=== PATIENT | female | born 1960 | race Caucasian/White ===

== ENCOUNTER 2022-02-25 09:15 | Emergency (ER) | payer BC ==
[2022-02-25 10:36] LABS: Absolute Lymphocytes (CBC) 1.4 K/uL (0.7-4.9); Hematocrit 40.4 % (36.0-45.0); MCV 85.1 fL (80-100); MPV 7.2 fL (7.6-11.3); RBC Red Blood Cell Count 4.75 M/uL (3.86-4.86)
[2022-02-25 10:37] LABS: Protime INR 1.05
[2022-02-25] MEDS ORDERED: NA CHLORIDE 0.9% 1,000 ML ONE (10:46)
[2022-02-25 10:52] LABS: Albumin 4.5 g/dL (3.4-5.0); Bilirubin Direct 0.2 mg/dL (0-0.2); Bilirubin Total 0.6 mg/dL (0.2-1.0); Potassium 3.7 mmol/L (3.5-5.1); Protein, Total 8.3 g/dL (6.4-8.2)
[2022-02-25] MEDS ORDERED: DICYCLOMINE HCL 20 MG/2 ML AMP IM ONE (11:03)
[2022-02-25] MEDS ORDERED: ONDANSETRON 4 MG/2 ML VIAL ONE (11:03)
--- NOTE | 2022-02-25 11:32 | RAD REPORT ---
EXAM DESCRIPTION: CT - Head Brain Wo Cont - 02/25/2022 11:12 am CLINICAL HISTORY: Syncope COMPARISON: 2014 TECHNIQUE: Computed axial tomography of the head was obtained. IV contrast was not requested. All CT scans are performed using dose optimization technique as appropriate and may include automated exposure control or mA/KV adjustment according to patient size. FINDINGS: An intracranial bleed is not seen . The ventricles are normal in caliber. No extra-axial fluid collection is noted. Mild low-density areas within white matter left frontal lobe unchanged. Sub centimeter sub centimeter low-density area right cerebellum without significant change presumably neural epithelial cyst Fluid within the sinuses/ mastoids is not seen. IMPRESSION: No acute intracranial abnormality is seen. If patient's symptoms persist MRI of the bra in would be recommended.
--- NOTE | 2022-02-25 11:32 | RAD REPORT ---
EXAM DESCRIPTION: Jesus Single View02/25/2022 10:47 am CLINICAL HISTORY: Shortness of breath COMPARISON: none FINDINGS: The lungs appear clear of acute infiltrate. The heart is normal size IMPRESSION: No acute abnormalities displayed
--- NOTE | 2022-02-25 11:37 | RAD REPORT ---
EXAM DESCRIPTION: CT - Abdomen Pelvis Wo Contrast - 02/25/2022 11:12 am CLINICAL HISTORY: Abdominal pain blood in stool COMPARISON: None TECHNIQUE: Computed axial tomography of the abdomen and pelvis was obtained. IV and oral contrast we re not requested. All CT scans are performed using dose optimization technique as appropriate and may include automated exposure control or mA/KV adjustment according to patient size. FINDINGS: The evaluation of solid organs, vessels and bowel is limited secondary to the lack of con trast administration. The liver, spleen, pancreas, adrenals and kidneys appear grossly normal. 13 millimeter peripherally calcified gallstone. Small umbilical hernia Mild to mild thickening of the wall of the left colon. No evidence of diverticulitis. Atherosclerotic disease Hysterectomy. No adnexal mass. Small hiatal hernia IMPRESSION: Cholelithiasis Mild to mild thickening of the wall of the left colon probably indicating a colitis
[2022-02-25 11:42] LABS: Magnesium 2.2 mg/dL (1.8-2.4); Troponin High Sensitivity 7.5 pg/mL (<58.9)
[2022-02-25] MEDS ORDERED: FAMOTIDINE 20 MG/2 ML VIAL IV ONE (11:54)
--- NOTE | 2022-02-25 12:10 | ER ---
Nurse's Notes [facility] Name: Patt Velásquez Age: 61 yrs Sex: Female : 1960 Arrival Date: 02/25/2022 Time: 09:16 Bed 9 Private MD: SUZANNE RICARDO Diagnosis: Syncope;GI Bleed/ Gastrointestinal hemorrhage, unspecified;Left sided colitis Presentation: 02/25 10:05 Chief complaint: Patient states: abdominal pain, N/V/D since yesterday, with bloody jl7 stool; pain has resolved. Coronavirus screen: Vaccine status: Patient reports receiving the 2nd dose of the covid vaccine. At this time, the client does not indicate any symptoms associated with coronavirus-19. Ebola Screen: No symptoms or risks identified at this time. Initial Sepsis Screen: Does the patient meet any 2 criteria? No. Patient's initial sepsis screen is negative. Does the patient have a suspected source of infection? No. Patient's initial sepsis screen is negative. Risk Assessment: Do you want to hurt yourself or someone else? Patient reports no desire to harm self or others. Onset of symptoms was February 25, 2022. 10:05 Method Of Arrival: Wheelchair jl7 10:05 Acuity: NIDIA 3 jl7 Triage Assessment: 10:08 General: Appears in no apparent distress. uncomfortable, Behavior is calm, cooperative, jl7 appropriate for age. Pain: Denies pain. GI: Reports diarrhea, nausea, vomiting. Historical: - Allergies: 10:08 No Known Allergies; jl7 - Home Meds: 10:08 Lisinopril Oral [Active]; jl7 - PMHx: 10:08 Hypertensive disorder; Hypercholesterolemia; jl7 - PSHx: 10:08 section; Total abdominal hysterectomy; knee; jl7 - Immunization history:: Client reports receiving the 2nd dose of the Covid vaccine. - Social history:: Smoking status: Patient denies any tobacco usage or history of. Screenin:00 Abuse screen: Denies threats or abuse. Denies injuries from another. Nutritional eh3 screening: No deficits noted. Tuberculosis screening: No symptoms or risk factors identified. Fall Risk None identified. Assessment: 11:00 General: Appears in no apparent distress. uncomfortable, Behavior is cooperative, eh3 appropriate for age, anxious. Pain: Denies pain. Neuro: Level of Consciousness is awake, alert, obeys commands, Oriented to person, place, time, situation. Cardiovascular: Capillary refill < 3 seconds Patient's skin is warm and dry. Respiratory: Airway is patent Respiratory effort is even, unlabored, Respiratory pattern is regular, symmetrical. GI: Abdomen is round non-distended, Bowel sounds present X 4 quads. Abdomen is tender to palpation X 4 quads. Reports diarrhea, bloody stool, nausea. : No signs and/or symptoms were reported regarding the genitourinary system. EENT: Derm: No signs and/or symptoms reported regarding the dermatologic system. Musculoskeletal: No signs and/or symptoms reported regarding the musculoskeletal system. Range of motion: intact in all extremities. 12:00 Reassessment: Patient and/or family updated on plan of care and expected duration. Pain eh3 level reassessed. Patient is alert, oriented x 3, equal unlabored respirations, skin warm/dry/pink. 13:00 Reassessment: Patient and/or family updated on plan of care and expected duration. Pain eh3 level reassessed. Patient is alert, oriented x 3, equal unlabored respirations, skin warm/dry/pink. 13:29 Reassessment: Patient and/or family updated on plan of care and expected duration. Pain eh3 level reassessed. Patient is alert, oriented x 3, equal unlabored respirations, skin warm/dry/pink. Pt states she would like to leave and go home to call Dr. Levy. ERCP notified. Vital Signs: 10:05 BP 105 / 61; Pulse 108; Resp 17; Temp 98; Pulse Ox 100% ; Weight 76.2 kg (R); Height 5 7 ft. 7 in. (170.18 cm); Pain 0/10; 11:00 BP 125 / 59; Pulse 100; Resp 18; Temp 98.2(O); Pulse Ox 100% on R/A; eh3 12:00 BP 156 / 76; Pulse 104; Resp 16; Temp 98.6(O); Pulse Ox 100% ; eh3 13:00 BP 131 / 68; Pulse 101; Resp 18; Pulse Ox 100% on R/A; eh3 10:05 Body Mass Index 26.31 (76.20 kg, 170.18 cm) 7 ED Course: 09:16 Patient arrived in ED. am2 09:16 SUZANNE RICARDO is Private Physician. am2 09:17 Levy Sierra PA is PHCP. cp 09:17 Levy Lentz MD is Attending Physician. cp 10:07 Triage completed. jl7 10:08 Arm band placed on right wrist. jl7 10:22 Atiya Davis, RN is Primary Nurse. eh3 10:23 Initial lab(s) drawn, by wa, sent to lab. Inserted saline lock: 20 gauge in right jw7 antecubital area, using aseptic technique. Blood collected. 10:43 EKG done, by ED staff, reviewed by Levy PAZ. em1 10:49 XRAY Chest (1 view) In Process Unspecified. EDMS 11:00 Patient has correct armband on for positive identification. Bed in low position. Call eh3 light in reach. Side rails up X2. Adult w/ patient. Pulse ox on. NIBP on. Door closed. Noise minimized. Lights dimmed. Warm blanket given. 11:14 CT Head Brain wo Cont In Process Unspecified. EDMS 11:14 Abdomen In Process Unspecified. EDMS 12:00 Procalcitonin Sent. jw7 12:00 Lactate w/ 2H reflex if indic. Sent. jw7 12:[address] [facility]. bd 13:34 Finesse Levy MD is Referral Physician. cp 13:40 No provider procedures requiring assistance completed. IV discontinued, intact, eh3 bleeding controlled, No redness/swelling at site. Pressure dressing applied. Administered Medications: 11:15 Drug: NS 0.9% 1000 ml Route: IV; Rate: 1 bolus; Site: right antecubital; eh3 12:30 Follow up: IV Status: Completed infusion; IV Intake: 1000ml eh3 11:15 Drug: Zofran (Ondansetron) 4 mg Route: IVP; Site: right antecubital; eh3 12:07 Follow up: Response: Nausea is decreased eh3 11:20 Drug: Dicyclomine 20 mg Route: IM; Site: right ventrogluteal; eh3 12:08 Follow up: Response: No adverse reaction eh3 11:48 Drug: Pepcid (famotidine) 20 mg Route: IVP; Site: right antecubital; eh3 12:08 Follow up: Response: No adverse reaction eh3 13:40 Not Given (Patient Refused): Cipro (ciprofloxacin) 400 mg 200 ml IVPB once over 60 mins eh3 13:40 Not Given (Patient Refused): metroNIDAZOLE 500 mg 100 ml IVPB once over 30 mins eh3 Medication: 13:40 VIS not applicable for this client. eh3 Intake: 12:30 IV: 1000ml; Total: 1000ml. eh3 Outcome: 12:10 ER care complete, transfer ordered by MD. cp 13:35 Discharge ordered by MD. cp 13:50 Discharged to home ambulatory, with family. eh3 13:50 Condition: stable 13:50 Discharge instructions given to patient, family, Instructed on discharge instructions, follow up and referral plans. medication usage, Demonstrated understanding of instructions, follow-up care, medications, Prescriptions given X 3. 13:52 Patient left the ED. eh3 Signatures: Dispatcher [employer] EDMS Renay Guy Eric em1 Levy Sierra PA PA cp Leal, Jahala RN RN jl7 Gypsy Chen am2 Diandra Metz7 Atiya Davis, AZALIA RN eh3 Corrections: (The following items were deleted from the chart) 10:09 10:08 PMHx: Hypertensive disorder; selma jl7 13:28 11:00 BP 127 / 59; Pulse 100bpm; Resp 18bpm; Pulse Ox 100% RA; Temp 98.2F Oral; eh3 eh3 13:40 13:29 Reassessment: Patient and/or family updated on plan of care and expected eh3 duration. Pain level reassessed. Patient is alert, oriented x 3, equal unlabored respirations, skin warm/dry/pink. Pt states she would like to leave AMA and go home to call Dr. Parry. ERCP notified eh3 14:24 12:25 BP 127 / 59; Pulse 100bpm; Resp 18bpm; Pulse Ox 100% RA; Temp 98.2F Oral; eh3 eh3 14:24 13:27 BP 156 / 76; Pulse 104bpm; Resp 16bpm; Pulse Ox 100%; Temp 98.6F Oral; eh3 eh3
--- NOTE | 2022-02-25 12:10 | EDPHYS ---
Physician Documentation [facility] Name: Patt Velásquez Age: 61 yrs Sex: Female : 1960 Arrival Date: 02/25/2022 Time: 09:16 Bed 9 Private MD: SUZANNE RICARDO ED Physician Levy Lentz HPI: 02/25 10:15 This 61 yrs old Female presents to ER via Wheelchair with complaints of Abdominal Pain, cp Diarrhea, Bloody Stools. 10:15 The patient presents with abdominal pain. cp 10:15 Onset: The symptoms/episode began/occurred yesterday. The symptoms do not radiate. cp Associated signs and symptoms: Pertinent positives: blood in stools, diarrhea, Pertinent negatives: chest pain, constipation, fever, hematuria, vomiting. The symptoms are described as waxing/waning. Severity of pain: in the emergency department the pain has improved. 10:15 Patient reports becoming weak and passing out briefly. cp Historical: - Allergies: 10:08 No Known Allergies; jl7 - Home Meds: 10:08 Lisinopril Oral [Active]; jl7 - PMHx: 10:08 Hypertensive disorder; Hypercholesterolemia; jl7 - PSHx: 10:08 section; Total abdominal hysterectomy; knee; jl7 - Immunization history:: Client reports receiving the 2nd dose of the Covid vaccine. - Social history:: Smoking status: Patient denies any tobacco usage or history of. ROS: 10:20 Constitutional: Negative for body aches, chills, fever, poor PO intake. cp 10:20 Eyes: Negative for injury, pain, redness, and discharge. cp 10:20 ENT: Negative for drainage from ear(s), ear pain, sore throat, difficulty swallowing, difficulty handling secretions. 10:20 Cardiovascular: Negative for chest pain, edema, palpitations. 10:20 Respiratory: Negative for cough, shortness of breath, wheezing. 10:20 Abdomen/GI: Positive for abdominal pain, nausea, diarrhea, anorexia, rectal bleeding, Negative for vomiting, constipation, black/tarry stool. 10:20 : Negative for urinary symptoms. 10:20 Neuro: Positive for dizziness, syncope, weakness, Negative for headache. 10:20 All other systems are negative. Exam: 10:25 Constitutional: The patient appears in no acute distress, alert, awake, cp non-diaphoretic, non-toxic, well developed, well nourished. 10:25 Head/Face: Normocephalic, atraumatic. cp 10:25 Eyes: Periorbital structures: appear normal, Conjunctiva: normal, no exudate, no injection, Sclera: no appreciated abnormality, Lids and lashes: appear normal, bilaterally. 10:25 ENT: External ear(s): are unremarkable, Nose: is normal, Mouth: Lips: moist, Oral mucosa: pink and intact, moist, Posterior pharynx: Airway: no evidence of obstruction, patent. 10:25 Neck: ROM/movement: is normal, is supple, without pain, no range of motions limitations. 10:25 Chest/axilla: Inspection: normal. 10:25 Cardiovascular: Rate: tachycardic, Rhythm: regular, Edema: is not appreciated, JVD: is not appreciated. 10:25 Respiratory: the patient does not display signs of respiratory distress, Respirations: normal, no use of accessory muscles, no retractions, labored breathing, is not present, Breath sounds: are clear throughout, no decreased breath sounds, no stridor, no wheezing. 10:25 Abdomen/GI: Inspection: abdomen appears normal, Bowel sounds: active, all quadrants, Palpation: soft, in all quadrants, mild abdominal tenderness, in the abdomen diffusely, rebound tenderness, is not appreciated, involuntary guarding, is not appreciated, Rectal exam: Stool: guaiac positive, maroon. 10:25 Back: CVA tenderness, is absent. 10:25 Neuro: Orientation: to person, place \T\ time. Mentation: is normal, Motor: moves all fours, strength is normal, Sensation: is normal. 10:45 ECG was reviewed by the Attending Physician. cp Vital Signs: 10:05 BP 105 / 61; Pulse 108; Resp 17; Temp 98; Pulse Ox 100% ; Weight 76.2 kg (R); Height 5 jl7 ft. 7 in. (170.18 cm); Pain 0/10; 11:00 BP 125 / 59; Pulse 100; Resp 18; Temp 98.2(O); Pulse Ox 100% on R/A; eh3 12:00 BP 156 / 76; Pulse 104; Resp 16; Temp 98.6(O); Pulse Ox 100% ; eh3 13:00 BP 131 / 68; Pulse 101; Resp 18; Pulse Ox 100% on R/A; eh3 10:05 Body Mass Index 26.31 (76.20 kg, 170.18 cm) jl7 MDM: 10:10 Patient medically screened. ovi 13:30 Data reviewed: vital signs, nurses notes, lab test result(s), EKG, radiologic studies, cp CT scan. ED course: VSS. Labs, EKG, radiology results reviewed and discussed with patient. Transfer recommended for admission and GI consult. Patient refuses transfer at this time and requests treatment with oral antibiotics. 02/25 10:00 Order name: Basic Metabolic Panel; Complete Time: 11:56 02/25 11:56 Interpretation: Normal except: GLUC 142; BUN 35; CRE 1.57; GFR 37; CA 12.0. 02/25 10:00 Order name: CBC with Diff; Complete Time: 10:48 02/25 11:57 Interpretation: Normal except: WBC 18.10; MPV 7.2; SILVIA% 84.3; LYM% 8.0; NEUT A 15.3. 02/25 10:00 Order name: LFT's; Complete Time: 11:56 02/25 10:00 Order name: Magnesium; Complete Time: 11:56 02/25 10:00 Order name: NT PRO-BNP; Complete Time: 11:56 02/25 11:56 Interpretation: Abnormal: NT PRO-BNP 202. 02/25 10:00 Order name: PT-INR; Complete Time: 10:48 02/25 10:00 Order name: Troponin HS; Complete Time: 11:56 02/25 10:00 Order name: XRAY Chest (1 view); Complete Time: 11:56 02/25 10:00 Order name: Lipase; Complete Time: 11:56 02/25 10:49 Order name: CT Head Brain wo Cont; Complete Time: 11:56 02/25 10:00 Order name: EKG; Complete Time: 10:01 02/25 10:00 Order name: Cardiac monitoring; Complete Time: 11:00 02/25 10:00 Order name: EKG - Nurse/Tech; Complete Time: 10:43 02/25 10:00 Order name: IV Saline Lock; Complete Time: 10:24 02/25 10:00 Order name: Labs collected and sent; Complete Time: 10:24 cp 02/25 10:00 Order name: O2 Per Protocol; Complete Time: 11:00 cp 02/25 10:00 Order name: O2 Sat Monitoring; Complete Time: 11:00 cp 02/25 11:11 Order name: Abdomen ; Complete Time: 11:56 EDMS 02/25 13:24 Order name: Vital Signs; Complete Time: 13:29 cp EC:45 Rate is 101 beats/min. Rhythm is regular. [place] interval is normal. QRS interval is cp normal. QT interval is normal. T waves are Inverted in lead aVR. Interpreted by me. Reviewed by me. Administered Medications: 11:15 Drug: NS 0.9% 1000 ml Route: IV; Rate: 1 bolus; Site: right antecubital; eh3 12:30 Follow up: IV Status: Completed infusion; IV Intake: 1000ml eh3 11:15 Drug: Zofran (Ondansetron) 4 mg Route: IVP; Site: right antecubital; eh3 12:07 Follow up: Response: Nausea is decreased eh3 11:20 Drug: Dicyclomine 20 mg Route: IM; Site: right ventrogluteal; eh3 12:08 Follow up: Response: No adverse reaction eh3 11:48 Drug: Pepcid (famotidine) 20 mg Route: IVP; Site: right antecubital; eh3 12:08 Follow up: Response: No adverse reaction eh3 13:40 Not Given (Patient Refused): Cipro (ciprofloxacin) 400 mg 200 ml IVPB once over 60 mins eh3 13:40 Not Given (Patient Refused): metroNIDAZOLE 500 mg 100 ml IVPB once over 30 mins eh3 Disposition: 02/26 09:32 Co-signature as Attending Physician, Levy Lentz MD I agree with the assessment and ovi plan of care. Disposition Summary: 02/25/22 13:35 Discharge Ordered Location: Home cp Problem: new(02/25/22 13:35) cp Symptoms: have improved(02/25/22 13:35) cp Condition: Stable(02/25/22 13:35) cp Diagnosis - Syncope cp - GI Bleed/ Gastrointestinal hemorrhage, unspecified(02/25/22 13:35) cp - Left sided colitis(02/25/22 13:35) cp Followup: cp - With: Finesse Levy MD - When: 2 - 3 days - Reason: Recheck today's complaints Discharge Instructions: - Discharge Summary Sheet cp - Gastrointestinal Bleeding cp - Colitis cp Forms: - Medication Reconciliation Form cp - Thank You Letter cp - Antibiotic Education cp - Prescription Opioid Use cp Prescriptions: - Zofran 4 mg Oral Tablet - take 1 tablet by ORAL route every 12 hours As needed; 20 tablet; Refills: 0, cp Product Selection Permitted - Augmentin 875-125 mg Oral Tablet - take 1 tablet by ORAL route every 12 hours for 10 days; 20 tablet; Refills: 0, cp Product Selection Permitted - dicyclomine 20 mg Oral Tablet - take 1 tablet by ORAL route 4 times per day; 20 tablet; Refills: 0, Product cp Selection Permitted Signatures: Dispatcher [employer] EDMS Levy Lentz MD MD cha Page, Corey, JACKSON PA Pawan Ray, RN RN jl7 Atiya Davis RN RN eh3 Corrections: (The following items were deleted from the chart) 02/25 10:09 10:08 PMHx: Hypertensive disorder; jl7 jl7 11:11 10:51 Abdomen Pelvis W Con+CT.RAD.BRZ ordered. EDMS EDMS 11:56 11:56 Normal except: GLUC 142; BUN 35; CRE 1.57; GFR 37. cp cp 12:11 12:10 Doctor cp cp 13:34 12:10 [facility] cp cp 13:34 12:10 Higher level of care cp cp 13:34 12:10 Stable cp cp 13:34 12:10 new cp cp 13:34 12:10 have improved cp cp 13:34 12:10 GI Bleed/ Gastrointestinal hemorrhage, unspecified cp cp 13:34 12:11 Doctor cp cp 13:34 12:11 Left sided colitis cp cp 13:34 12:11 Syncope cp cp
[2022-02-25 14:15] VITALS: O2SAT 100
[2022-02-25 14:17] VITALS: BP 156/76; TEMP 98.6
--- NOTE | 2022-02-28 19:22 | EKG ---
Test Date: 2022-02-25 Test Time: 10:39:29 Hand Dry Cleaner: ARJUN MEASUREMENT RESULTS: Intervals: Rate: 101 OK: 154 QRSD: 82 QT: 340 QTc: 440 [place]: P: 78 OK: 154 QRS: 51 T: 75 INTERPRETIVE STATEMENTS: Sinus tachycardia Otherwise normal ECG Compared to ECG 03/09/2000 14:36:00 Sinus rhythm no longer present Electronically Signed On 02-28-22 19:11:28 [employer] by Edgardo Caceres
== END 2022-02-25 13:52 | disposition home or self-care (01) ==
LOC: ER 09:15
DX: K92.2 Gastrointestinal hemorrhage, unspecified (principal); K51.50 Left sided colitis without complications; I10 Essential (primary) hypertension
CPT/HCPCS: 96361; 93005; 85025; 80048; 36415; 83735; 85610; 80076; 84484; 83690; 83880; 70450; 74176; 71045; 96375; 96372; 96374; 99284; J0500; J7030; J2405

== ENCOUNTER 2023-11-17 12:36 | Inpatient (IN) | payer BC ==
[2023-11-17] MEDS ORDERED: NA CHLORIDE 0.9% 1,000 ML ONE ×2 (13:06→15:40)
[2023-11-17] MEDS ORDERED: ONDANSETRON 4 MG/2 ML VIAL ONE ×2 (13:06→14:51)
[2023-11-17] MEDS ORDERED: FAMOTIDINE 20 MG/2 ML VIAL IV ONE (13:06)
[2023-11-17 13:34] LABS: Absolute Monocytes 0.9 K/uL (0.1-1.3); Absolute Neutrophil 6.9 K/uL (1.8-8.0); Basophils % 0.5 % (0-1.3); Eosinophils % 0.1 % (0-4.4); Hematocrit 35.6 % (36.0-45.0); Hemoglobin 11.7 g/dL (12.0-15.0); Lymphocytes % 19.8 % (15.3-44.8); MCH 28.7 pg (27.0-35.0); MCHC 32.9 g/dL (32.0-36.0); MCV 87.2 fL (80-100); Monocytes % 9.3 % (3.3-12.3); Neutrophils % 70.3 % (41.7-73.7); Platelets 366 thou/uL (152-406); RBC Red Blood Cell Count 4.09 M/uL (3.86-4.86); Red Cell Distribution Width 15.3 % (12.1-15.2)
[2023-11-17 13:51] LABS: PT Prothrombin Time 12.2 SECONDS (9.4-12.5); Protime INR 1.09
[2023-11-17 13:56] LABS: Albumin 4.5 g/dL (3.4-5.0); Albumin/Globulin Ratio 1.1 (1.1-1.8); Anion Gap 13.7 mEq/L (5.0-15.0); Bilirubin Direct 0.2 mg/dL (0-0.2); Bilirubin Indirect, Calculated 0.3 mg/dL (0.2-0.8); Bilirubin Total 0.5 mg/dL (0.2-1.0); Globulin 4.2 g/dL (2.3-3.5); Magnesium 1.8 mg/dL (1.6-2.4); Potassium 3.7 mEq/L (3.5-5.1); Protein, Total 8.7 g/dL (6.4-8.2); Troponin High Sensitivity 9.6 pg/mL (<58.9)
--- NOTE | 2023-11-17 14:08 | RAD REPORT ---
EXAM DESCRIPTION: RAD - Chest Single View - 11/17/2023 1:38 pm CLINICAL HISTORY: COUGH COMPARISON: Chest Single View dated 02/25/2022 FINDINGS: Lines: None. Lungs: No evidence of edema or pneumonia. Pleural: No significant pleural effusions or pneumothorax. Cardiac: The heart size is within normal limits. Mediastinum: Within normal limits. Bones: No acute fractures. Other: None IMPRESSION: No acute cardiopulmonary disease.
--- NOTE | 2023-11-17 15:10 | ER ---
Nurse's Notes [facility] Name: Patt Velásquez Age: 63 yrs Sex: Female : 1960 Arrival Date: 11/17/2023 Time: 12:36 Bed 20 Private MD: Diagnosis: Weakness;Dehydration;Acute kidney failure, unspecified;Vomiting;Nausea with vomiting, unspecified Presentation: 11/16 13:29 Chief complaint: Patient states: nausea, vomiting. Coronavirus screen: At this time, kj2 the client does not indicate any symptoms associated with coronavirus-19. Ebola Screen: No symptoms or risks identified at this time. Initial Sepsis Screen: Does the patient meet any 2 criteria? No. Patient's initial sepsis screen is negative. Does the patient have a suspected source of infection? No. Patient's initial sepsis screen is negative. Risk Assessment: Do you want to hurt yourself or someone else? Patient reports no desire to harm self or others. Onset of symptoms was November 16, 2023 at 15:00. 13:29 Method Of Arrival: Ambulatory kj2 13:29 Acuity: NIDIA 3 kj2 Triage Assessment: 13:55 General: Appears uncomfortable, Behavior is fussy. GI: Reports nausea, vomiting, since kj2 yesterday at 1500. Historical: - Home Meds: 13:32 lisinopril Oral [Active]; kj2 - PMHx: 13:32 Hypercholesterolemia; Hypertensive disorder; kj2 - PSHx: 13:32 section; knee; Total abdominal hysterectomy; kj2 - Immunization history:: Adult Immunizations up to date. - Infectious Disease History:: Denies. - Family history:: not pertinent. - Social history:: Smoking status: Patient/guardian denies using tobacco products. Screenin:52 [facility] ED Fall Risk Assessment (Adult) History of falling in the last 3 months, kj2 including since admission No falls in past 3 months (0 pts) Confusion or Disorientation No (0 pts) Intoxicated or Sedated No (0 pts) Impaired Gait No (0 pts) Mobility Assist Device Used No (0 pt) Altered Elimination No (0 pt) Score/Fall Risk Level 0 - 2 = Low Risk Maintained a safe environment, Educated pt \\T\\ family on fall prevention, incl call for assistance when getting out of bed, Hourly rounding (assess needs \\T\\ fall precautionary measures) done. Abuse screen: Denies threats or abuse. Denies injuries from another. Nutritional screening: No deficits noted. Tuberculosis screening: No symptoms or risk factors identified. Assessment: 13:31 General: see triage assessment. Pain: Denies pain. GI: Abdomen is Reports nausea, kj2 vomiting. 14:25 Reassessment: No changes from previously documented assessment. Patient and/or family kj2 updated on plan of care and expected duration. Pain level reassessed. Patient is alert, oriented x 3, equal unlabored respirations, skin warm/dry/pink. 14:57 Reassessment: Patient and/or family updated on plan of care and expected duration. Pain kj2 level reassessed. Patient is alert, oriented x 3, equal unlabored respirations, skin warm/dry/pink. RN gave zofran via IV for complains of nausea. 16:32 Reassessment: Patient and/or family updated on plan of care and expected duration. Pain kj2 level reassessed. Patient is alert, oriented x 3, equal unlabored respirations, skin warm/dry/pink. Patient states feeling better. Patient states symptoms have improved. 17:30 Reassessment: No changes from previously documented assessment. kj2 Vital Signs: 13:29 BP 135 / 72; Pulse 110; Resp 20; Temp 99; Pulse Ox 98% on R/A; kj2 13:30 BP 135 / 72; Pulse 110; Resp 20; Temp 99; Pulse Ox 98% on R/A; kj2 14:23 BP 141 / 74; Pulse 107; Resp 18; Pulse Ox 98% on R/A; kj2 14:57 BP 132 / 67; Pulse 106; Resp 20; Pulse Ox 98% on R/A; kj2 16:30 BP 155 / 83; Pulse 103; Resp 18; Pulse Ox 99% on R/A; kj2 17:30 BP 128 / 72; Pulse 110; Resp 18; Pulse Ox 97% on R/A; kj2 ED Course: 12:39 Patient arrived in ED. mg5 12:45 Levy Lentz MD is Attending Physician. ovi 13:03 Maida Dallas, AZALIA is Primary Nurse. kj2 13:30 Triage completed. kj2 13:31 No provider procedures requiring assistance completed. Inserted saline lock: 20 gauge kj2 in right antecubital area, using aseptic technique. Blood collected. Flushed with 10 mL NS. 13:40 XRAY Chest (1 view) In Process Unspecified. EDMS 13:54 Patient has correct armband on for positive identification. Bed in low position. Call kj2 light in reach. Provided Education on: call light, fall precautions. 14:03 EKG done, by ED staff, reviewed by Levy Lentz MD. 6 15:08 Nikita Magdaleno is Hospitalizing Provider. [facility] 15:16 CT Chest Abdomen Pelvis W/O Contrast In Process Unspecified. EDMS 16:07 Labs ordered per protocol. Drawn by ED staff. blood cultures drawn at 1540 and 1550, kj2 lactate drawn at 1550. 16:11 Lactate w/ 2H reflex if indic. Sent. kj2 18:00 Patient admitted, IV remains in place. kj2 Administered Medications: 13:30 Drug: Famotidine IVP 20 mg IVP once; dilute with 10 mL 0.9% NaCl; give over 2 minutes kj2 Route: IVP; Site: right antecubital; 13:56 Follow up: Response: No adverse reaction kj2 13:33 Drug: Ondansetron IVP 4 mg IVP once; over 2 minutes Route: IVP; Site: right antecubital;kj2 13:56 Follow up: Response: No adverse reaction kj2 13:34 Drug: NS 0.9% IV 1000 ml IV at 1 bolus Per protocol; 1000 mL bolus Route: IV; Rate: 1 kj2 bolus; Site: right antecubital; 15:00 Follow up: Response: No adverse reaction; IV Status: Completed infusion; IV Intake: kj2 1000ml 14:56 Drug: Ondansetron IVP 4 mg IVP once; over 2 minutes Route: IVP; Site: right antecubital;kj2 16:34 Follow up: Response: No adverse reaction kj2 16:10 Drug: Rocephin IV 1 grams IV at per protocol once; Given slow IV push per pharmacy kj2 instructions Route: IV; Rate: per protocol; Site: right antecubital; 16:33 Follow up: Response: No adverse reaction kj2 16:11 Drug: NS 0.9% IV 1000 ml IV at 1 bolus Per protocol; 1000 mL bolus Route: IV; Rate: 1 kj2 bolus; Site: right antecubital; 17:30 Follow up: Response: No adverse reaction; IV Status: Completed infusion; IV Intake: kj2 1000ml 16:11 Drug: Promethazine IVP 25 mg IVP once; add to 2 nd liter bolus Route: IVP; Site: right kj2 antecubital; 16:33 Follow up: Response: No adverse reaction; Nausea is decreased kj2 Medication: 13:53 VIS not applicable for this client. kj2 Intake: 15:00 IV: 1000ml; Total: 1000ml. kj2 17:30 IV: 1000ml; Total: 2000ml. kj2 Outcome: 15:09 Decision to Hospitalize by Provider. ovi 17:56 Patient left the ED. kj2 17:58 Admitted to Tele accompanied by tech, via wheelchair, room 405, Report called to [facility] [place] ticket faxed to 2nd floor as instructed by Dawn when called 4th floor to find out if fax working, stated "out of toner, fax to second floor". 17:58 Condition: stable 17:58 Instructed on the need for admit, Signatures: Dispatcher [employer] Levy Connor MD MD cha [place], Breana 6 Racquel Zhang mg5 Maida Dallas, RN RN kj2
--- NOTE | 2023-11-17 15:10 | EDPHYS ---
Physician Documentation [facility] Name: Patt Velásquez Age: 63 yrs Sex: Female : 1960 Arrival Date: 11/17/2023 Time: 12:36 Bed 20 Private MD: JUAN MANUEL Physician Levy Lentz HPI: 11/16 15:04 This 63 yrs old Female presents to ER via Ambulatory with complaints of ovi Nausea/Vomiting. 15:04 The patient presents to the emergency department with nausea, vomiting, that is ovi continuous. Onset: The symptoms/episode began/occurred 1 day(s) ago. Possible causes: unknown. The symptoms are aggravated by nothing. The symptoms are alleviated by nothing. Associated signs and symptoms: The patient has no apparent associated signs or symptoms. Severity of symptoms: At their worst the symptoms were moderate in the emergency department the symptoms are unchanged. The patient has not experienced similar symptoms in the past. 15:05 weak , nausea, vomiting, feels sick. ovi Historical: - Home Meds: 13:32 lisinopril Oral [Active]; kj2 - PMHx: 13:32 Hypercholesterolemia; Hypertensive disorder; kj2 - PSHx: 13:32 section; knee; Total abdominal hysterectomy; kj2 - Immunization history:: Adult Immunizations up to date. - Infectious Disease History:: Denies. - Family history:: not pertinent. - Social history:: Smoking status: Patient/guardian denies using tobacco products. ROS: 15:05 Constitutional: Negative for fever, chills, and weight loss, Eyes: Negative for injury, ovi pain, redness, and discharge, ENT: Negative for injury, pain, and discharge, Neck: Negative for injury, pain, and swelling, Respiratory: Negative for shortness of breath, cough, wheezing, and pleuritic chest pain, Back: Negative for injury and pain, : Negative for injury, bleeding, discharge, and swelling, MS/Extremity: Negative for injury and deformity, Skin: Negative for injury, rash, and discoloration, Neuro: Negative for headache, weakness, numbness, tingling, and seizure, Psych: Negative for depression, anxiety, suicide ideation, homicidal ideation, and hallucinations, Allergy/Immunology: Negative for hives, rash, and allergies, Endocrine: Negative for neck swelling, polydipsia, polyuria, polyphagia, and marked weight changes, Hematologic/Lymphatic: Negative for swollen nodes, abnormal bleeding, and unusual bruising, 15:05 Cardiovascular: Positive for palpitations, 15:05 Abdomen/GI: Positive for nausea and vomiting, abdominal cramps, Exam: 15:05 Constitutional: This is a well developed, well nourished patient who is awake, alert, ovi and in no acute distress. Head/Face: Normocephalic, atraumatic. Eyes: Pupils equal round and reactive to light, extra-ocular motions intact. Lids and lashes normal. Conjunctiva and sclera are non-icteric and not injected. Cornea within normal limits. Periorbital areas with no swelling, redness, or edema. ENT: Nares patent. No nasal discharge, no septal abnormalities noted. Tympanic membranes are normal and external auditory canals are clear. Oropharynx with no redness, swelling, or masses, exudates, or evidence of obstruction, uvula midline. Mucous membranes moist. Neck: Trachea midline, no thyromegaly or masses palpated, and no cervical lymphadenopathy. Supple, full range of motion without nuchal rigidity, or vertebral point tenderness. No Meningismus. Chest/axilla: Normal chest wall appearance and motion. Nontender with no deformity. No lesions are appreciated. Cardiovascular: Regular rate and rhythm with a normal S1 and S2. No gallops, murmurs, or rubs. Normal PMI, no JVD. No pulse deficits. Respiratory: Lungs have equal breath sounds bilaterally, clear to auscultation and percussion. No rales, rhonchi or wheezes noted. No increased work of breathing, no retractions or nasal flaring. Abdomen/GI: Soft, non-tender, with normal bowel sounds. No distension or tympany. No guarding or rebound. No evidence of tenderness throughout. Back: No spinal tenderness. No costovertebral tenderness. Full range of motion. Female : Normal external genitalia. Skin: Warm, dry with normal turgor. Normal color with no rashes, no lesions, and no evidence of cellulitis. MS/ Extremity: Pulses equal, no cyanosis. Neurovascular intact. Full, normal range of motion. Neuro: Awake and alert, GCS 15, oriented to person, place, time, and situation. Cranial nerves II-XII grossly intact. Motor strength 5/5 in all extremities. Sensory grossly intact. Cerebellar exam normal. Normal gait. Psych: Awake, alert, with orientation to person, place and time. Behavior, mood, and affect are within normal limits. 15:05 ECG was reviewed by the Attending Physician. Vital Signs: 13:29 BP 135 / 72; Pulse 110; Resp 20; Temp 99; Pulse Ox 98% on R/A; kj2 13:30 BP 135 / 72; Pulse 110; Resp 20; Temp 99; Pulse Ox 98% on R/A; kj2 14:23 BP 141 / 74; Pulse 107; Resp 18; Pulse Ox 98% on R/A; kj2 14:57 BP 132 / 67; Pulse 106; Resp 20; Pulse Ox 98% on R/A; kj2 16:30 BP 155 / 83; Pulse 103; Resp 18; Pulse Ox 99% on R/A; kj2 17:30 BP 128 / 72; Pulse 110; Resp 18; Pulse Ox 97% on R/A; kj2 MDM: 12:45 Patient medically screened. [facility] 15:07 Differential diagnosis: Nonspecific abd pain, gastritis, cholecystitis, pancreatitis, ovi appendicitis, diverticulitis, viral gastroenteritis, gastroenteritis. Differential Diagnosis altered mental status, sepsis, flu. Data reviewed: vital signs, nurses notes, lab test result(s), EKG, radiologic studies, CT scan, plain films. Consideration of Admission/Observation Patient was admitted/placed on observation. Escalation of care including admission/observation considered. I considered the following discharge prescriptions or medication management in the emergency department Medications were administered in the Emergency Department. See MAR. Independent interpretation of the following test(s) in the Emergency Department EKG: See my EKG interpretation above. Test considered but Not performed: Ultrasound no abd usg. Care significantly affected by the following chronic conditions: Hypertension, high cholesterol. 11/16 12:47 Order name: Basic Metabolic Panel; Complete Time: 15: [facility] 11/16 12:47 Order name: CBC with Diff; Complete Time: 15: [facility] 11/16 12:47 Order name: LFT's; Complete Time: 15: [facility] 11/16 12:47 Order name: Magnesium; Complete Time: 15: [facility] 11/16 12:47 Order name: NT PRO-BNP; Complete Time: 15: [facility] 11/16 12:47 Order name: PT-INR; Complete Time: 15: [facility] 11/16 12:47 Order name: Troponin HS; Complete Time: 15:01 [facility] 11/16 12:47 Order name: Lipase; Complete Time: 15:01 [facility] 11/16 12:47 Order name: Urinalysis w/ reflexes [facility] 11/16 15:01 Order name: Blood Culture Adult (2) [facility] 11/16 15:01 Order name: Lactate w/ 2H reflex if indic. [facility] 11/16 15:04 Order name: Flu [facility] 11/16 15:04 Order name: SARS RAPID [facility] 11/16 12:47 Order name: XRAY Chest (1 view); Complete Time: 15:01 [facility] 11/16 15:02 Order name: CT Chest Abdomen Pelvis W/O Contrast [facility] 11/16 12:47 Order name: EKG; Complete Time: 12:48 [facility] 11/16 16:36 Order name: CONS Physician Consult [facility] 11/16 12:47 Order name: Cardiac monitoring; Complete Time: 13:34 [facility] 11/16 12:47 Order name: EKG - Nurse/Tech; Complete Time: 14:02 [facility] 11/16 12:47 Order name: IV Saline Lock; Complete Time: 13:34 [facility] 11/16 12:47 Order name: Labs collected and sent; Complete Time: 13:34 [facility] 11/16 12:47 Order name: O2 Per Protocol; Complete Time: 13:34 [facility] 11/16 12:47 Order name: O2 Sat Monitoring; Complete Time: 13:34 [facility] 11/16 16:08 Order name: Labs - recollect needed: collect blood cultures; Complete Time: 16:30 bd EC:05 Rate is 113 beats/min. Rhythm is regular. QRS [place] is Normal. PA interval is normal. [facility] QRS interval is normal. QT interval is normal. No Q waves. T waves are Normal. No ST changes noted. Clinical impression: Sinus tachycardia. Interpreted by me. Reviewed by me. Administered Medications: 13:30 Drug: Famotidine IVP 20 mg IVP once; dilute with 10 mL 0.9% NaCl; give over 2 minutes kj2 Route: IVP; Site: right antecubital; 13:56 Follow up: Response: No adverse reaction kj2 13:33 Drug: Ondansetron IVP 4 mg IVP once; over 2 minutes Route: IVP; Site: right antecubital;kj2 13:56 Follow up: Response: No adverse reaction kj2 13:34 Drug: NS 0.9% IV 1000 ml IV at 1 bolus Per protocol; 1000 mL bolus Route: IV; Rate: 1 kj2 bolus; Site: right antecubital; 15:00 Follow up: Response: No adverse reaction; IV Status: Completed infusion; IV Intake: kj2 1000ml 14:56 Drug: Ondansetron IVP 4 mg IVP once; over 2 minutes Route: IVP; Site: right antecubital;kj2 16:34 Follow up: Response: No adverse reaction kj2 16:10 Drug: Rocephin IV 1 grams IV at per protocol once; Given slow IV push per pharmacy kj2 instructions Route: IV; Rate: per protocol; Site: right antecubital; 16:33 Follow up: Response: No adverse reaction kj2 16:11 Drug: NS 0.9% IV 1000 ml IV at 1 bolus Per protocol; 1000 mL bolus Route: IV; Rate: 1 kj2 bolus; Site: right antecubital; 17:30 Follow up: Response: No adverse reaction; IV Status: Completed infusion; IV Intake: kj2 1000ml 16:11 Drug: Promethazine IVP 25 mg IVP once; add to 2 nd liter bolus Route: IVP; Site: right kj2 antecubital; 16:33 Follow up: Response: No adverse reaction; Nausea is decreased kj2 Disposition Summary: 11/17/23 15:09 Hospitalization Ordered Notes: Hospitalization Status: Observation ovi Provider: Nikita Magdaleno cha Location: Telemetry/MedSurg (observation) ovi Condition: Fair ovi Problem: new ovi Symptoms: have improved ovi Bed/Room Type: Standard ovi Room Assignment: 405(11/17/23 16:46) bd Diagnosis - Weakness ovi - Dehydration ovi - Acute kidney failure, unspecified ovi - Vomiting ovi - Nausea with vomiting, unspecified ovi Forms: - Medication Reconciliation Form ovi - SBAR form ovi - Leadership Thank You Letter ovi Signatures: Dispatcher [employer] Renay Chavez Corey, MD MD cha Jaco, Norma RN RN nj1 Maida Dallas RN RN kj2 Corrections: (The following items were deleted from the chart) 15:02 15:02 BLOOD CULTURE*+BA.LAB.BRZ ordered. EDMS EDMS 15:02 15:02 LACTATE+C.LAB.BRZ ordered. EDMS EDMS 15:03 15:03 Chest Abdomen Pelvis Wo Con+CT.RAD.BRZ ordered. EDMS EDMS 15: 15:04 This 63 yrs old Female presents to ER via Ambulatory with complaints of ovi Nausea/Vomiting. ovi 15: 15:04 This 63 yrs old Female presents to ER via Ambulatory with complaints of ovi Nausea/Vomiting. ovi 16:46 15:09 ovi bd
--- NOTE | 2023-11-17 15:30 | RAD REPORT ---
EXAM DESCRIPTION: CTChest Abd Pelvis Wo Con - 11/17/2023 3:14 pm CLINICAL HISTORY: Abdominal distention;Fever;Dyspnea COMPARISON: Abdomen Pelvis Wo Contrast dated 02/25/2022 TECHNIQUE: CT of the chest, abdomen, and pelvis was performed without IV contrast. All CT scans are performed using dose optimization technique as appropriate and may include automated exposure control or mA/KV adjustment according to patient size. FINDINGS: Thorax: Chest Wall: No abnormal mass Lungs: 4 mm left lower lobe pulmonary nodule on image 31, series 201. Other small sub 4 mm nodules ar e present bilaterally. Pleura: No effusions or pneumothorax. Silvia/Mediastinum: No lymphadenopathy. Small to moderate hiatal hernia. Aorta/Pulmonary Arteries: Unremarkable Heart: Normal size. Multi-vessel coronary disease. Abdomen/Pelvis: Liver: No acute abnormality or suspicious lesions. Biliary: Cholelithiasis. The gallbladder is distended. No pericholecystic inflammatory changes. Stomach: No significant focal abnormality. Duodenum: No significant focal abnormality. Pancreas: No significant abnormality. Spleen: No significant abnormality. Adrenal: No suspicious lesions. Kidney/ureter: No hydronephrosis. No renal calculi. Retroperitoneum: No retroperitoneal adenopathy. Vascular: No aneurysm. Atherosclerosis Bowel: No significant focal abnormality. Normal appendix. Peritoneum: No ascites or free air. Bladder: Grossly unremarkable. Reproductive: Hysterectomy. Bones: No acute fracture. Other: n/a IMPRESSION: 1. Cholelithiasis with distended gallbladder similar to prior CTs. No pericholecystic in flammatory changes. Nevertheless, mild or early acute cholecystitis is difficult to exclude by CT. Co rrelate with LFTs. Could consider right upper quadrant ultrasound if abnormal or there is clinical co ncern for acute cholecystitis. 2. No acute findings in the chest. 3. 4 mm left lower lobe pulmonary nodule. Other smaller nodules noted bilaterally. A benign etiology is suspected. If the patient has significant risk factors for lung cancer, recommend 12 month follow- up chest CT. If not, follow-up chest CT is optional.
[2023-11-17] MEDS ORDERED: CEFTRIAXONE 1000 MG/VIAL ONE (15:39)
[2023-11-17] MEDS ORDERED: PROMETHAZINE INJ 25 MG/ML AMP ONE (15:40)
--- NOTE | 2023-11-17 16:28 | P.HP ---
Certification for Inpatient Patient admitted to: Observation <Vianca Peraza - Last Filed: 11/17/23 18:12> Patient History Date of Service: 11/17/23 Reason for admission: Nausea vomiting History of Present Illness: 63 yrs old Female Hypercholesterolemia; Hypertensive disorder presents to the emergency room for nausea, vomiting. She reports nausea, vomiting started last night. She reports poor po intake due to NV. She denies fever, recent infection, no reported diarrhea. No reported chest pain, She denies abdominal pain. CT imaging reports cholelithiasis, surgery consulted to [facility]. She reports prior history of cholelithiasis. Plan to admit for observation nausea, vomiting, weakness, acute cholelithiasis possible cholecystitis. Surgery to [facility]. Dr Luna. - Past Medical/Surgical History -: HTN -: HLD - Social History Smoking Status: Former smoker <TimothymanpreetVianca - Last Filed: 11/17/23 18:12> Date of Service: 11/17/23 <Jaja Murry - Last Filed: 11/20/23 12:00> Allergies STEROIDS Adverse Reaction (Uncoded 11/19/23 13:39) UNABLE TO SLEEP Home Medications: Eszopiclone [Lunesta] 3 mg PO BEDTIME 11/17/23 Evolocumab [Repatha Syringe] 140 mg SQ UD 11/17/23 Gabapentin 300 mg PO BID 11/17/23 Latanoprost Ophth [Xalatan 0.005%*] 1 drop EACH EYE BEDTIME 11/17/23 Lisinopril/Hydrochlorothiazide [Lisinopril-Hctz 20-12.5 mg Tab] 2 tab PO DAILY 11/17/23 Omeprazole [Prilosec] 40 mg PO DAILY 11/17/23 Amox/Clavulanate [Augmentin 875-125 Tab] 875 mg PO BID #10 tab 11/20/23 Hydrocodone 5/APAP 325 [[place] 5/325*] 1 tab PO Q4H PRN #30 tab 11/20/23 Review of Systems Per HPI <Vianca Peraza - Last Filed: 11/17/23 18:12> Physical Examination - Physical Exam General: Alert, In no apparent distress, Oriented x3 HEENT: Atraumatic, Normocephalic Neck: 2+ carotid pulse no bruit, JVD not distended Respiratory: Clear to auscultation bilaterally, Normal air movement Cardiovascular: Normal pulses, Regular rate/rhythm Capillary refill: <2 Seconds Gastrointestinal: Normal bowel sounds, Soft and benign Musculoskeletal: No clubbing, No swelling Integumentary: No breakdown, No significant lesion Neurological: Normal speech, Normal strength at 5/5 x4 extr - Studies Laboratory Data (last 24 hrs) 11/17/23 11/17/23 11/17/23 13:15 13:15 13:15 WBC 9.80 Hgb 11.7 L Hct 35.6 L Plt Count 366 PT 12.2 INR 1.09 Sodium 139 Potassium 3.7 BUN 30 H Creatinine 1.41 H Glucose 140 H Magnesium 1.8 Total Bilirubin 0.5 AST 19 ALT 34 Alkaline Phosphatase 117 Lipase 19 <Vianca Peraza - Last Filed: 11/17/23 18:12> Assessment and Plan - Plan Assessment plan Acute cholelithiasis possible cholecystitis Nausea vomiting Surgery to consult, IV fluids, IV antibiotics, as needed antiemetics, as needed analgesics CT 1. Cholelithiasis with distended gallbladder similar to prior CTs. No pericholecystic inflammatory changes. Nevertheless, mild or early acute cholecystitis is difficult to exclude by CT. Correlate with LFTs. Could consider right upper quadrant ultrasound if abnormal or there is clinical concern for acute cholecystitis2. No acute findings in the chest.3. 4 mm left lower lobe pulmonary nodule. Other smaller nodules noted bilaterally. A benign etiology is suspected. If the patient has significant risk factors for lung cancer, recommend 12 month follow-up chest CT EKG s 113 beats/min. Rhythm is regular. QRS [place] is Normal. [place] interval is normal. QRS interval is normal. QT interval is normal. No Q waves. T waves are Normal. No ST changes noted. Clinical impression: Sinus tachycardia. Pulmonary nodule Former smoker Needs to follow-up with pulmonary after discharge Hypertension Hyperlipidemia Resume appropriate home meds Full code DVT SCDs Diet clear liquid Disposition independent prior Discharge Plan: Home - Advance Directives Does patient have a Living Will: No Does patient have a Durable POA for Healthcare: No - Code Status/Comfort Care Code Status: Full Code Critical Care: No Time Spent Managing Pts Care (In Minutes): 55 <Vianca Peraza - Last Filed: 11/17/23 18:12> Date of Service: 11/17/23 Patient chart was reviewed and patient was seen and examined. PATTI history and physical reviewed as well. Agree with the assessment and plan. Patient presented with nausea and vomiting. Patient's symptoms have been fairly persistent. Workup revealed possible cholelithiasis with cholecystitis. Surgery consultation. Most of the MDM was done by myself and plan of care was discussed with PATTI as well as the patient. Plan to discharge over the next 48 to 72 hours. <Jaja Murry - Last Filed: 11/20/23 12:00>
[2023-11-17 16:50] LABS: SARS-CoV-2 Antigen CONTROL BLUE LINE VIS/BG OK; SARS-CoV-2 Antigen Rapid Res Negative (Negative)
[2023-11-17] MEDS ORDERED: ZOLPIDEM TARTRATE 5 MG TABLET PO PRN (18:02)
[2023-11-17 18:29] LABS: Specific Gravity 1.016 (1.005-1.030); Sqamous Epithelial None Seen /HPF (None Seen); Urine Bacteria <20 /HPF (<20); Urine Bilirubin NEGATIVE (Negative); Urine Blood Negative (Negative); Urine Clarity Turbid (Clear); Urine Color Light-Yellow (Yellow); Urine Culture Reflex Order NOT NEEDED; Urine Glucose NEGATIVE (Negative); Urine Ketones TRACE (Negative); Urine Microscopic Reflex YN ORDER UMIC; Urine Mucus Slight /HPF (None Seen); Urine Nitrite 2+ (Negative); Urine Protein TRACE (Negative); Urine RBC <5 /HPF (None Seen); Urine Urobilinogen Normal (Normal); Urine WBC <5 /HPF (<5); Urine pH 5.5 (5.0-7.0)
[2023-11-17] MEDS: NA CHLORIDE 0.9% 1,000 ML IV SCH (18:38)
--- NOTE | 2023-11-17 19:26 | RAD REPORT ---
EXAM DESCRIPTION: US - Abdomen Exam Limited - 11/17/2023 7:02 pm CLINICAL HISTORY: CHOLECYSTITIS COMPARISON: Abdomen Pelvis Wo Contrast dated 02/25/2022; Chest Abd Pelvis Wo Con dated 11/17/2023 FINDINGS: The gallbladder demonstrates shadowing gallstones. No pericholecystic fluid or gallbladder wall thickening. The gallbladder is distended. The common bile duct is normal measuring 4 mm. The liver demonstrates no findings of intrahepatic biliary dilatation. IMPRESSION: Cholelithiasis with distended gallbladder but no sonographic evidence of acute cholecyst itis. Common bile duct is normal in caliber.
[2023-11-17] MEDS: PIPER TAZO 3.375 GM in NA CHLORIDE 0.9% 100 ML IV SCH (20:26)
[2023-11-17] MEDS: ONDANSETRON 4 MG/2 ML VIAL IV PRN (20:26)
[2023-11-17] MEDS ORDERED: ACETAMINOPHEN 325 MG TABLET PO PRN (21:09)
[2023-11-17] MEDS ORDERED: MORPHINE 2 MG/ML SYR IV PRN (21:09)
[2023-11-17] MEDS: ESZOPICLONE 1 MG TAB PO SCH (21:54)
[2023-11-17] MEDS: GABAPENTIN 300 MG CAP PO SCH (21:54)
[2023-11-17 22:25] VITALS: BMI 25.0
--- NOTE | 2023-11-18 06:25 | P.PN ---
Date of Service: 11/18/23 Subjective reports nausea, no abdominal pain Review of Systems Per HPI Physical Examination - Physical Exam Vital signs reviewed General: Alert, In no apparent distress, Oriented x3 HEENT: Atraumatic, Normocephalic Neck: 2+ carotid pulse no bruit, JVD not distended Respiratory: Clear to auscultation bilaterally, Normal air movement Cardiovascular: Normal pulses, Regular rate/rhythm Capillary refill: <2 Seconds Gastrointestinal: Normal bowel sounds, Soft and benign Musculoskeletal: No clubbing, No swelling Integumentary: No breakdown, No significant lesion Neurological: Normal speech, Normal strength at 5/5 x4 extr Assessment and Plan - Plan Assessment plan Acute cholelithiasis possible cholecystitis Nausea vomiting Surgery to consult, IV fluids, IV antibiotics, as needed antiemetics, as needed analgesics CT 1. Cholelithiasis with distended gallbladder similar to prior CTs. No perich olecystic inflammatory changes. Nevertheless, mild or early acute cholecystitis is difficult to exclude by CT. Correlate with LFTs. Could consider right upper quadrant ultrasound if abnormal or there is clinical concern for acute cholecystitis2. No acute findings in the chest.3. 4 mm left lower lobe pulmonary nodule. Other smaller nodules noted bilaterally. A benign etiology is suspected. If the patient has significant risk factors for lung cancer, recommend 12 month follow-up chest CT EKG s 113 beats/min. Rhythm is regular. QRS [place] is Normal. [place] interval is normal. QRS interval is normal. QT interval is normal. No Q waves. T waves are Normal. No ST changes noted. Clinical impression: Sinus tachycardia. Pulmonary nodule Former smoker Needs to follow-up with pulmonary after discharge Hypertension Hyperlipidemia Resume appropriate home meds Full code DVT SCDs Diet clear liquid Disposition independent prior Discharge Plan: Home - Advance Directives Does patient have a Living Will: No Does patient have a Durable POA for Healthcare: No - Code Status/Comfort Care Code Status: Full Code Critical Care: No Time Spent Managing Pts Care (In Minutes): 35 <Vianca Peraza - Last Filed: 11/19/23 06:20> Patient chart was reviewed and patient was seen and examined. PATTI history and physical reviewed as well. Agree with the assessment and plan. Patient presented with nausea and vomiting. Patient's symptoms have been fairly persistent. Workup revealed possible cholelithiasis with cholecystitis. Surgery consultation appreciated. Patient scheduled for laparoscopic cholecystectomy in a.m. Most of the MDM was done by myself and plan of care was discussed with PATTI as well as the patient. Plan to discharge over the next 48 hours. <Jaja Murry - Last Filed: 11/20/23 12:02>
[2023-11-18 06:52] LABS: Absolute Basophils 0.1 K/uL (0-0.5); Absolute Eosinophils 0.1 K/uL (0-0.5); Absolute Monocytes 0.7 K/uL (0.1-1.3); Basophils % 0.9 % (0-1.3); Eosinophils % 0.9 % (0-4.4); Hematocrit 29.2 % (36.0-45.0); Hemoglobin 9.5 g/dL (12.0-15.0); Lymphocytes % 29.2 % (15.3-44.8); MCH 28.9 pg (27.0-35.0); MCHC 32.6 g/dL (32.0-36.0); MCV 88.6 fL (80-100); MPV 8.2 fL (7.6-11.3); Monocytes % 10.3 % (3.3-12.3); Neutrophils % 58.7 % (41.7-73.7); Platelets 231 thou/uL (152-406); Red Cell Distribution Width 15.4 % (12.1-15.2)
[2023-11-18 07:13] LABS: Albumin 3.5 g/dL (3.4-5.0); Albumin/Globulin Ratio 1.1 (1.1-1.8); Anion Gap 9.1 mEq/L (5.0-15.0); Bilirubin Total 0.4 mg/dL (0.2-1.0); Globulin 3.2 g/dL (2.3-3.5); Magnesium 1.7 mg/dL (1.6-2.4); Potassium 3.1 mEq/L (3.5-5.1); Protein, Total 6.7 g/dL (6.4-8.2)
[2023-11-18] MEDS: KCL 20 MEQ/100 mL IVPB 20 MEQ/100 ML BAG IV SCH (08:23)
[2023-11-18] MEDS: PROMETHAZINE 25 MG TABLET PO ONE (11:24)
[2023-11-18] MEDS: HYDROCODONE/APAP 5/325 MG TAB PO PRN (12:46)
--- NOTE | 2023-11-18 13:07 | EKG ---
Test Date: 2023-11-17 Test Time: 13:59:52 [employer]: ARJUN MEASUREMENT RESULTS: Intervals: Rate: 113 [place]: 174 QRSD: 58 QT: 328 QTc: 449 [place]: P: 58 [place]: 174 QRS: 32 T: 20 INTERPRETIVE STATEMENTS: Sinus tachycardia Otherwise normal ECG Compared to ECG 02/25/2022 10:39:29 No significant changes Electronically Signed On 11-18-23 13:05:25 CDT by Alexis Hart
--- NOTE | 2023-11-18 13:26 | CON ---
Date of Consultation: 11/18/2023 Reason For Consultation: Elevated BUN and creatinine. History Of Present Illness: This is a pleasant 63-year-old female with significant past medical hist ory of hypertension, hyperlipidemia, the patient came to the hospital complaining from nausea and vom iting for the last 24 hours, found to have elevation in BUN and creatinine, found to have cholelithia sis. The patient was started on IV hydration. Kidney function started being improving. Past Medical History: Include hypertension and hyperlipidemia. Allergies: NO KNOWN DRUGS ALLERGY. Social History: Ex-smoker. Denied alcohol. Denied drugs abuse. Family History: Positive for hypertension. Past Surgical History: Negative. Review of Systems: Head and Neck: No red eye. No ear pain. GI: Has nausea, vomiting. : No polyuria. No dysuria. No hematuria. 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 Respiratory: No shortness of breath. Cardiovascular: No chest pain. Endocrine: No polydipsia. Skin: No rash. Physical Examination: Vital Signs: When I saw the patient, blood pressure 151/71, pulse of 81. Chest: Clear to auscultation. Heart: S1, S2. Regular. Abdomen: Soft, nontender. Extremity: No edema. Neuro: Alert. No focality. Laboratory Data: Upon admission; hemoglobin 11.7, sodium 139, potassium 3.7, bicarb 25, BUN 30, crea tinine 1.4, GFR 42, calcium 11.2. Today's lab data: Potassium 3.1, BUN 20, creatinine 9, calcium 9. 9, hemoglobin 9.5. Urinalysis negative for infection. CT negative for hydronephrosis. Current Medications: The patient on promethazine, Zosyn, Ambien, gabapentin, IV fluid. Assessment And Plan: 1.Acute kidney injury secondary to prerenal, obstructive uropathy has been ruled out. We will yoanna nue hydration. 2.Hypokalemia, status post supplement. Patient is still dependent. I am going to give another dose of KCl and we will follow up. 3.Hypertension with the presence of acute kidney injury. Hold diuresis. Hold any VINCENZO inhibitor or ARB. 4.Hypercalcemia secondary to dehydration, resolved. 5.Cholelithiasis, as by Primary. Thank you, Dr. Murry, for allowing us to participate in the care of your patient. YAKELIN/MODL Voice ID: [id number] Report ID: [id number]
[2023-11-18] MEDS: MAGNESIUM SULFATE 1 gm IVPB 1 GM/100 ML BAG IV ONE (14:07)
[2023-11-18] MEDS: POTASSIUM CL 40 MEQ in NA CHLORIDE 0.9% 500 ML IV SCH (14:07)
[2023-11-18] MEDS: ONDANSETRON 4 MG/2 ML VIAL IV ONE (23:04)
--- NOTE | 2023-11-19 06:19 | P.PN ---
Date of Service: 11/19/23 Subjective Review of Systems Per HPI Physical Examination - Physical Exam Vital signs reviewed General: Alert, In no apparent distress, Oriented x3 HEENT: Atraumatic, Normocephalic Neck: 2+ carotid pulse no bruit, JVD not distended Respiratory: Clear to auscultation bilaterally, Normal air movement Cardiovascular: Normal pulses, Regular rate/rhythm Capillary refill: <2 Seconds Gastrointestinal: Normal bowel sounds, Soft and benign Musculoskeletal: No clubbing, No swelling Integumentary: No breakdown, No significant lesion Neurological: Normal speech, Normal strength at 5/5 x4 extr Assessment and Plan - Plan Assessment plan Acute cholelithiasis possible cholecystitis Nausea vomiting Surgery to consult, IV fluids, IV antibiotics, as needed antiemetics, as needed analgesics CT 1. Cholelithiasis with distended gallbladder similar to prior CTs. No pericholecystic inflammatory changes. Nevertheless, mild or early acute cholecystitis is difficult to exclude by CT. Correlate with LFTs. Could consider right upper quadrant ultrasound if abnormal or there is clinical concern for acute cholecystitis2. No acute findings in the chest.3. 4 mm left lower lobe pulmonary nodule. Other smaller nodules noted bilaterally. A benign etiology is suspected. If the patient has significant risk factors for lung cancer, recommend 12 month follow-up chest CT EKG s 113 beats/min. Rhythm is regular. QRS [place] is Normal. [place] interval is normal. QRS interval is normal. QT interval is normal. No Q waves. T waves are Normal. No ST changes noted. Clinical impression: Sinus tachycardia. Pulmonary nodule Former smoker Needs to follow-up with pulmonary after discharge Hypertension Hyperlipidemia Resume appropriate home meds Full code DVT SCDs Diet clear liquid Disposition independent prior Discharge Plan: Home - Advance Directives Does patient have a Living Will: No Does patient have a Durable POA for Healthcare: No - Code Status/Comfort Care Code Status: Full Code Critical Care: No Time Spent Managing Pts Care (In Minutes): 35 <Vianca Peraza - Last Filed: 11/19/23 06:21> Patient chart was reviewed and patient was seen and examined. PATTI history and physical reviewed as well. Agree with the assessment and plan. Patient presented with nausea and vomiting. Patient taken to the OR by general surgery for laparoscopic cholecystectomy. Possible discharge in a.m. if patient does well overnight. Most of the MDM was done by myself and plan of care was discussed with PATTI as well as the patient. Plan to discharge over the next 24 hours. <Jaja Murry - Last Filed: 11/20/23 12:02>
--- NOTE | 2023-11-19 06:21 | P.DS ---
Admission Date: 11/19/23 Discharge Date: 11/20/23 Hospital Course: Patient was taken to the operating room for laparoscopic cholecystectomy. Patient has done well postoperatively. Patient states her nausea has resolved. Patient is clinically doing well at this time anticipate discharge home with outpatient follow-up. Patient will follow-up with general surgery in 1 week. No heavy lifting as noted. Clearance to go back to work after follow-up with general surgery. Discharged with oral pain medications and antibiotics. <Jaja Murry - Last Filed: 11/20/23 12:02> Admission Date: 11/19/23 Discharge Date: 11/20/23 Reason for Admission: Nausea vomiting Brief History of Present Illness: 63 yrs old Female Hypercholesterolemia; Hypertensive disorder presents to the emergency room for nausea, vomiting. She reports nausea, vomiting started last night. She reports poor po intake due to NV. She denies fever, recent infection, no reported diarrhea. No reported chest pain, She denies abdominal pain. CT imaging reports cholelithiasis, surgery consulted to [facility]. She reports prior history of cholelithiasis. Plan to admit for observation nausea, vomiting, weakness, acute cholelithiasis possible cholecystitis. Surgery to lewis.. - Physical Exam General: Alert, In no apparent distress, Oriented x3 HEENT: Atraumatic, Normocephalic Neck: 2+ carotid pulse no bruit, JVD not distended Respiratory: Clear to auscultation bilaterally, Normal air movement Cardiovascular: Normal pulses, Regular rate/rhythm Capillary refill: <2 Seconds Gastrointestinal: Normal bowel sounds, Soft and benign Musculoskeletal: No clubbing, No swelling Integumentary: No breakdown, No significant lesion Neurological: Normal speech, Normal strength at 5/5 x4 extr <Vianca Peraza - Last Filed: 11/21/23 17:52> Disposition: ROUTINE DISCHARGE Discharge Condition: GOOD Vital Signs/Physical Exam: Temp Pulse Resp BP Pulse Ox 97.1 F 84 16 147/66 H 95 11/20/23 08:00 11/20/23 08:00 11/20/23 08:00 11/20/23 08:00 11/20/23 08:00 General: Alert, In no apparent distress, Oriented x3 Laboratory Data at Discharge: WBC 6.80 thou/uL (4.3-10.9) 11/20/23 07:30 Hgb 9.3 g/dL (12.0-15.0) L 11/20/23 07:30 Hct 28.4 % (36.0-45.0) L 11/20/23 07:30 Plt Count 226 thou/uL (152-406) 11/20/23 07:30 PT 12.2 SECONDS (9.4-12.5) 11/17/23 13:15 INR 1.09 11/17/23 13:15 Sodium 143 mEq/L (136-145) 11/20/23 07:30 Potassium 3.2 mEq/L (3.5-5.1) L 11/20/23 07:30 BUN 12 mg/dL (7-18) 11/20/23 07:30 Creatinine 0.87 mg/dL (0.55-1.02) 11/20/23 07:30 Glucose 146 mg/dL (74-106) H 11/20/23 07:30 Magnesium 1.5 mg/dL (1.6-2.4) L 11/20/23 07:30 Total Bilirubin 0.4 mg/dL (0.2-1.0) 11/18/23 06:10 AST 17 U/L (15-37) 11/18/23 06:10 ALT 23 U/L (13-56) 11/18/23 06:10 Alkaline Phosphatase 87 U/L (45-117) D 11/18/23 06:10 Lipase 19 U/L (13-75) 11/17/23 13:15 <Jaja Murry - Last Filed: 11/20/23 12:02> Vital Signs/Physical Exam: Temp Pulse Resp BP Pulse Ox 97.3 F 80 20 131/61 97 11/19/23 04:00 11/19/23 04:00 11/19/23 04:00 11/19/23 04:00 11/19/23 04:00 Laboratory Data at Discharge: WBC 6.80 thou/uL (4.3-10.9) 11/18/23 06:10 Hgb 9.5 g/dL (12.0-15.0) L D 11/18/23 06:10 Hct 29.2 % (36.0-45.0) L 11/18/23 06:10 Plt Count 231 thou/uL (152-406) D 11/18/23 06:10 PT 12.2 SECONDS (9.4-12.5) 11/17/23 13:15 INR 1.09 11/17/23 13:15 Sodium 144 mEq/L (136-145) D 11/18/23 06:10 Potassium 3.1 mEq/L (3.5-5.1) L D 11/18/23 06:10 BUN 20 mg/dL (7-18) H 11/18/23 06:10 Creatinine 0.92 mg/dL (0.55-1.02) 11/18/23 06:10 Glucose 111 mg/dL (74-106) H 11/18/23 06:10 Magnesium 1.7 mg/dL (1.6-2.4) 11/18/23 06:10 Total Bilirubin 0.4 mg/dL (0.2-1.0) 11/18/23 06:10 AST 17 U/L (15-37) 11/18/23 06:10 ALT 23 U/L (13-56) 11/18/23 06:10 Alkaline Phosphatase 87 U/L (45-117) D 11/18/23 06:10 Lipase 19 U/L (13-75) 11/17/23 13:15 <Vianca Peraza - Last Filed: 11/21/23 17:52> Time spent managing pt's care (in minutes): 35 <Jaja Murry - Last Filed: 11/20/23 12:02> <Vianca Peraza - Last Filed: 11/21/23 17:52> Home Medications: Eszopiclone [Lunesta] 3 mg PO BEDTIME 11/17/23 Evolocumab [Repatha Syringe] 140 mg SQ UD 11/17/23 Gabapentin 300 mg PO BID 11/17/23 Latanoprost Ophth [Xalatan 0.005%*] 1 drop EACH EYE BEDTIME 11/17/23 Lisinopril/Hydrochlorothiazide [Lisinopril-Hctz 20-12.5 mg Tab] 2 tab PO DAILY 11/17/23 Omeprazole [Prilosec] 40 mg PO DAILY 11/17/23 Amox/Clavulanate [Augmentin 875-125 Tab] 875 mg PO BID #10 tab 11/20/23 Hydrocodone 5/APAP 325 [[place] 5/325*] 1 tab PO Q4H PRN #30 tab 11/20/23 Hydrocodone 5/APAP 325 [[place] 5/325] 1 tab PO Q6H PRN #30 tab 11/21/23 New Medications: Amox/Clavulanate [Augmentin 875-125 Tab] 875 mg PO BID #10 tab Hydrocodone 5/APAP 325 [[place] 5/325*] 1 tab PO Q4H PRN #30 tab PRN Reason: Pain Scale 5-7 (Moderate) Hydrocodone 5/APAP 325 [[place] 5/325] 1 tab PO Q6H PRN #30 tab PRN Reason: Pain Physician Discharge Instructions: Keep surgical area clean and dry for 48h then may remove outer dressing and shower. Keep sterile strips intact. -DC IV and DC home -Follow-up with PCP in 1 to 2 weeks -Follow-up with Surgery in 1 week -Please call Dr. Murry at [phone] if any questions regarding hospital stay -Please call nursing station at [phone] if any nursing or medication questions -Return to the emergency room if symptoms worsen Followup: Kedar Powers MD [ACTIVE - CAN ADMIT] - 1 Week Josafat Byrnes FNP [Primary Care Provider] -
[2023-11-19 06:32] LABS: Anion Gap 10.2 mEq/L (5.0-15.0); Magnesium 1.7 mg/dL (1.6-2.4); Potassium 3.2 mEq/L (3.5-5.1)
[2023-11-19] MEDS: KCL 20 MEQ/100 mL IVPB 20 MEQ/100 ML BAG IV SCH (10:16)
[2023-11-19] MEDS ORDERED: SUGAMMADEX SODIUM 200 MG/2 ML VIAL IV ONE (12:11)
[2023-11-19] MEDS ORDERED: ROCURONIUM 50 MG/5 ML VIAL IV ONE (12:12)
[2023-11-19] MEDS ORDERED: propofoL 200 MG/20 ML VIAL IV ONE (12:12)
[2023-11-19] MEDS ORDERED: FENTANYL CITR 100 MCG/2 ML ONE (12:12)
[2023-11-19] MEDS ORDERED: ONDANSETRON 4 MG/2 ML VIAL ONE (12:12)
[2023-11-19] MEDS ORDERED: LIDOCAINE 2% MPF 5 ML VIAL ONE (12:12)
[2023-11-19] MEDS: Ringers Lactate 1,000 ML IV ONE (13:10)
[2023-11-19] MEDS: MIDAZOLAM HCL 2 MG/2 ML INJ ONE (13:28)
[2023-11-19] MEDS ORDERED: KETOROLAC 30 MG/ML INJ ONE (14:09)
[2023-11-19] MEDS: Mastisol Adhesive Liq ONE (14:15)
--- NOTE | 2023-11-19 14:20 | P.BOP ---
Preoperative diagnosis: acute cholecystitis, symptomatic cholelithiasis, umbilical hernia Postoperative diagnosis: same Primary procedure: 1. Laparoscopic cholecystectomy Secondary procedure: 2. Open repair of umbilical hernia Estimated blood loss: <10cc Specimen: gb Findings: as above, intrabdominal adhesions Anesthesia: General Complications: None Transferred to: Recovery Room Condition: Good
[2023-11-19 15:06] VITALS: O2SAT 99
[2023-11-19] MEDS: HYDROMORPHONE HCL 1 MG/ML INJ ONE (15:29)
--- NOTE | 2023-11-19 19:24 | PN ---
Date of Progress Note: 11/19/2023 Subjective: Status post laparoscopic cholecystectomy. Tolerating oral diet. Sodium up to 146, pota ssium 3.2. We will discontinue IV fluid. The patient can be discharged tomorrow from Nephrology poi nt of view. Physical Examination: Vital Signs: Temperature 97.8, pulse rate 79, blood pressure 150/67. General: Awake and alert, not in distress. Neck: Supple. No elevated JVD. Heart: Regular rate and rhythm. Normal S1, S2. Chest: Clear to auscultation bilaterally. No rales or wheezes. Abdomen: Soft, nontender. Extremities: No edema. Laboratory Data: Sodium 126, potassium 3.2, BUN 11, creatinine 0.8. Assessment And Plan: 1.Acute kidney injury due to dehydration. Creatinine down to baseline. Discontinue IV fluids. 2.Mild hypernatremia due to saline instead of IV fluid. Encourage fluid intake as tolerated. 3.Mild hypokalemia. Replace as needed. 4.Acute cholelithiasis and possible cholecystitis, status post cholecystectomy. ZO/MAGALIE Voice ID: [id number] Report ID: [id number]
--- NOTE | 2023-11-19 20:26 | OP ---
Date of Procedure: 11/19/2023 Surgeon: Kedar Powers MD Preoperative Diagnoses: Acute cholecystitis, symptomatic cholelithiasis, umbilical hernia. Postoperative Diagnoses: Acute cholecystitis, symptomatic cholelithiasis, umbilical hernia. Procedure: Laparoscopic cholecystectomy, open repair of umbilical hernia. Estimated Blood Loss: Less than 10 cc. Specimen: Gallbladder. Finding: Acute cholecystitis with multiple omental adhesions to the gallbladder. There were some al so intrahepatic adhesions to the anterior abdominal wall that needed to be resected in order for us t o mobilize the gallbladder properly. Anesthesia: General plus local. Complications: None. Indication: This is a case of a 63-year-old patient, who came to us with epigastric right upper quad rant pain radiating to the back associated with nausea and patient was diagnosed with acute cholecyst itis clinically and symptomatic cholelithiasis. She also understands she has an umbilical hernia pre sent, so laparoscopic possible open cholecystectomy with umbilical hernia repair was fully explained to the patient with benefits, alternatives, and risks including, but not limited to, infection, bleed ing, damage to adjacent structures, anesthesia complication, recurrence, choledocholithiasis, bile le ak, pancreatitis, IL, and even . She also understands this may not relieve any symptoms. She m ight need more than one surgical intervention. She understood, signed a consent. Description Of Procedure: The patient was brought to the operating room, placed in supine position. Anesthesia was done without complication. Abdominal area was prepped and draped in the usual steril e fashion. Marcaine 0.5% was injected for local anesthetic followed by sharp incision of the skin in the periumbilical region. Incision was carried down to fascia. We noticed the patient to have umbi lical hernia. Fascial edges were completely clean, seems to be healthy, susceptible enough to be abl e to close without tension with stitches without any mesh. So, we put Vicryl #1 inside the fascia. Won trocar was carefully introduced. Pneumoperitoneum was obtained. I placed 3 more trocars, 5 m m each one of them, 1 in epigastric area, 2 in the right upper quadrant. There were multiple adhesio ns to the liver, to the abdominal wall, and also omental adhesions that we have to open the LigaSure to proceed to remove those adhesions. We did that in a way to release the gallbladder, put a grasper in the fundus of the gallbladder. I then sequentially removed some adhesions until we were able to put a grasper in the infundibulum. The gallbladder was retracted in the inferolateral fashion exposi ng the triangle of Calot. In order for us to mobilize that liver and that gallbladder, we also have to remove adhesions that patient had between the liver and the anterior abdominal wall. At that mome nt, I proceeded grasping the fundus of the gallbladder, another grasper in the infundibulum, retracte d the gallbladder in the inferolateral fashion exposing the triangle of Calot and obtaining critical view. Cystic duct and cystic artery were clearly isolated, freed circumferentially, and a connection between those and the gallbladder were clearly identified. I proceeded to ligate those by using at least 3 clips proximal, 1 clip distal, ligation in the middle. Same was done with the cystic artery. No bile leak. No bleeding. The gallbladder was removed from the liver using Bovie cauterizer and removed from abdominal cavity using EndoCatch through the umbilical incision. Area was inspected onc e again. No bile leak. No bleeding. The area of adhesions that we removed with LigaSure also shows no bleeding. At that moment, I proceeded to remove the trocars under direct vision, deflated pneumo peritoneum. Closed the fascia and umbilical hernia with #1 Vicryl, irrigated subcutaneous tissue, cl osed that with 3-0 chromic and the skin in a subcuticular fashion with 3-0 chromic and Steri-Strips o n top. Sponge counts and instrument counts were correct. Patient tolerated the procedure well. Patient was sent to recovery in stable conditio nEdilson MÉNDEZ/MAGALIE Voice ID: [id number] Report ID: [id number]
[2023-11-20 07:48] LABS: Absolute Basophils 0.1 K/uL (0-0.5); Absolute Eosinophils 0.3 K/uL (0-0.5); Absolute Lymphocytes (CBC) 1.3 K/uL (0.7-4.9); Absolute Monocytes 0.5 K/uL (0.1-1.3); Absolute Neutrophil 4.7 K/uL (1.8-8.0); Basophils % 0.8 % (0-1.3); Eosinophils % 4.2 % (0-4.4); Hematocrit 28.4 % (36.0-45.0); Hemoglobin 9.3 g/dL (12.0-15.0); Lymphocytes % 18.5 % (15.3-44.8); MCH 29.1 pg (27.0-35.0); MCHC 32.8 g/dL (32.0-36.0); MCV 88.7 fL (80-100); MPV 7.4 fL (7.6-11.3); Monocytes % 7.7 % (3.3-12.3); Neutrophils % 68.8 % (41.7-73.7); Platelets 226 thou/uL (152-406); Red Cell Distribution Width 15.7 % (12.1-15.2)
[2023-11-20 08:04] LABS: Anion Gap 8.2 mEq/L (5.0-15.0); Magnesium 1.5 mg/dL (1.6-2.4); Potassium 3.2 mEq/L (3.5-5.1)
[2023-11-20 08:30] VITALS: BP 147/66; TEMP 97.1
[2023-11-20 10:01] LABS: Differential Total Cells Count 100; Segmented Neutrophils 66 % (40-80)
[2023-11-20 10:02] LABS: Blood Morphology Comment NOT SEEN (NOT SEEN); Eosinophils 4 % (0-3); Lymphocytes 20 % (15-42); Monocytes 8 % (0-10); Platelet Estimate ADEQ
== END 2023-11-20 09:00 | disposition home or self-care (01) | DRG 418 ==
LOC: ER 12:36 → ERHOLD 16:32 → 4TH 16:56 → OBSVTOIN 11-19 14:39
PROVIDERS: ADMIT Hospitalist; ATTEND Hospitalist
PROC: 0WQF0ZZ Repair Abdominal Wall, Open Approach (ICD-10-PCS; 2023-11-19)
PROC: 0FT44ZZ Resection of Gallbladder, Percutaneous Endoscopic Approach (ICD-10-PCS; principal; 2023-11-19 13:30)
DX: K80.00 Calculus of gallbladder with acute cholecystitis without obstruction (principal); E87.0 Hyperosmolality and hypernatremia; N17.9 Acute kidney failure, unspecified; K42.9 Umbilical hernia without obstruction or gangrene; I10 Essential (primary) hypertension; E87.6 Hypokalemia; E83.52 Hypercalcemia; E86.0 Dehydration; E78.00 Pure hypercholesterolemia, unspecified; R91.8 Other nonspecific abnormal finding of lung field; Z11.52 Encounter for screening for COVID-19; Z79.899 Other long term (current) drug therapy; Z87.891 Personal history of nicotine dependence; Z90.710 Acquired absence of both cervix and uterus
CPT/HCPCS: 36415; 71045; 71250; 74176; 76705; 80048; 80053; 80076; 81001; 83605; 83690; 83735; 83880; 84484; 85025; 85610; 87040; 87804; 87811; 88302; 88304; 93005; 94010; 96361; 96374; 96375; 99285; G0378; J0696; J1170; J2001; J2250; J2270; J2405; J2543; J2550; J2704; J3010; J3475; J3480; J7030; J7040; J7120; Q0169

== ENCOUNTER 2023-12-28 21:49 | Emergency (ER) | payer BC ==
[2023-12-28] MEDS ORDERED: NA CHLORIDE 0.9% 1,000 ML ONE (22:18)
[2023-12-28] MEDS ORDERED: FAMOTIDINE 20 MG/2 ML VIAL IV ONE (22:18)
[2023-12-28] MEDS ORDERED: ONDANSETRON 4 MG/2 ML VIAL ONE (22:18)
[2023-12-28 23:25] LABS: Absolute Basophils 0.1 K/uL (0-0.5); Absolute Eosinophils 0.2 K/uL (0-0.5); Absolute Lymphocytes (CBC) 0.9 K/uL (0.7-4.9); Absolute Monocytes 0.3 K/uL (0.1-1.3); Absolute Neutrophil 3.9 K/uL (1.8-8.0); Basophils % 1.3 % (0-1.3); Eosinophils % 4.1 % (0-4.4); Hematocrit 35.2 % (36.0-45.0); Hemoglobin 11.7 g/dL (12.0-15.0); Lymphocytes % 16.7 % (15.3-44.8); MCH 29.2 pg (27.0-35.0); MCHC 33.3 g/dL (32.0-36.0); MCV 87.6 fL (80-100); Monocytes % 5.3 % (3.3-12.3); Neutrophils % 72.6 % (41.7-73.7); Platelets 292 thou/uL (152-406); RBC Red Blood Cell Count 4.02 M/uL (3.86-4.86); Red Cell Distribution Width 15.5 % (12.1-15.2)
[2023-12-28 23:44] LABS: Albumin 4.2 g/dL (3.4-5.0); Albumin/Globulin Ratio 1.1 (1.1-1.8); Anion Gap 11.2 mEq/L (5.0-15.0); Bilirubin Total 0.3 mg/dL (0.2-1.0); Globulin 3.8 g/dL (2.3-3.5); Potassium 4.2 mEq/L (3.5-5.1)
[2023-12-29] MEDS ORDERED: LORazepam 2 MG/ML VIAL ONE (00:11)
[2023-12-29 02:29] LABS: Specific Gravity 1.019 (1.005-1.030); Urine Bilirubin NEGATIVE (Negative); Urine Blood Negative (Negative); Urine Clarity Clear (Clear); Urine Color Colorless (Yellow); Urine Glucose NEGATIVE (Negative); Urine Ketones NEGATIVE (Negative); Urine Microscopic Reflex YN NO UMIC; Urine Nitrite NEGATIVE (Negative); Urine Protein NEGATIVE (Negative); Urine Urobilinogen Normal (Normal); Urine pH 5.5 (5.0-7.0)
--- NOTE | 2023-12-29 03:16 | EDPHYS ---
Physician Documentation [facility] Name: Patt Velásquez Age: 63 yrs Sex: Female : 1960 Arrival Date: 12/28/2023 Time: 21:49 Bed 20 Private MD: ED Physician Norberto Rodriguez HPI: 12/28 00:30 This 63 yrs old Female presents to ER via Ambulatory with complaints of Nausea/Vomiting.kb 00:30 Pt is a 63 year old female who presents with nausea that started yesterday, vomiting kb and diarrhea started today. Denies any abd pain, fever. States she hasn't been able to tolerate anything by mouth. No alleviating or aggravating factors. Historical: - Allergies: 12/27 22:14 No Known Allergies; lg3 - PMHx: 22:14 Hypercholesterolemia; Hypertensive disorder; lg3 - PSHx: 22:14 section; knee; Total abdominal hysterectomy; Cholecystectomy; umbilical lg3 hernia; parathyroid; - Immunization history:: Adult Immunizations up to date. - Infectious Disease History:: Denies. - Social history:: Smoking status: Patient denies any tobacco usage or history of. Patient/guardian denies using alcohol, street drugs. ROS: 12/28 00:32 Constitutional: As per HPI kb Exam: 00:32 Head/Face: Normocephalic, atraumatic. ENT: Moist Mucous membranes Cardiovascular: kb Regular rate Respiratory: Respirations even and unlabored. No increased work of breathing. Talking in full sentences Abdomen/GI: Soft, non-tender. No distention Skin: Warm, dry with normal turgor. Normal color. MS/ Extremity: Pulses equal, no cyanosis. Neurovascular intact. Full, normal range of motion. Neuro: Awake and alert, GCS 15, oriented to person, place, time, and situation. Moves all extremities. Normal gait. 00:32 Constitutional: The patient appears alert, awake, uncomfortable, Vital Signs: 12/27 22:12 BP 172 / 90; Pulse 113; Resp 17 S; Temp 98(O); Pulse Ox 97% on R/A; Weight 71.67 kg lg3 (R); Height 5 ft. 7 in. (R); Pain 0/10; 22:40 BP 156 / 80; Pulse 96; Resp 17 S; Pulse Ox 100% on R/A; ha1 23:15 BP 158 / 78; Pulse 82; Resp 17 S; Pulse Ox 98% on R/A; ha1 12/28 00:03 BP 163 / 72; Pulse 92; Resp 17 S; Pulse Ox 99% on R/A; ha1 01:00 BP 156 / 86; Pulse 98; Resp 17 S; Pulse Ox 99% on R/A; ha1 02:00 BP 139 / 63; Pulse 98; Resp 17 S; Pulse Ox 99% on R/A; ha1 03:15 BP 160 / 84; Pulse 93; Resp 17 S; Temp 97.6(T); Pulse Ox 99% on R/A; ha1 12/27 22:12 Body Mass Index 24.75 (71.67 kg, 170.18 cm) lg3 12/27 22:12 Pain Scale: Adult lg3 MDM: 12/27 21:52 Patient medically screened. rod 12/28 00:32 Data reviewed: vital signs, nurses notes. rod 00:38 Transition of care: After a detail discussion of the patient's case, care is kb transferred to Norberto Rodriguez MD. 03:06 ED course: TECHNIQUE: Axial computed tomography images of the abdomen and pelvis with sp4 intravenous contrast. Sagittal and coronal reformatted images were created and reviewed. This CT exam was performed using one or more of the following dose reduction techniques: automated exposure control, adjustment of the mA and/or kV according to patient size, and/or use of iterative reconstruction technique. COMPARISON: CT Chest abdomen pelvis 11/17/2023. FINDINGS: Lung bases: Stable 3 mm right and 2 mm left lower lobe nodules. No consolidation. Mediastinum: Small hiatal hernia. ABDOMEN: Liver: Unremarkable. No mass. Gallbladder and bile ducts: Interval cholecystectomy. Trace fluid within the gallbladder fossa. No ductal dilation. Pancreas: Mild pancreatic parenchymal atrophy. No ductal dilation. Spleen: Unremarkable. No splenomegaly. Adrenals: Unremarkable. No mass. Kidneys and ureters: Unremarkable. No solid mass. No hydronephrosis. Stomach and bowel: Air-fluid levels within the proximal to mid large bowel. No obstruction. No appreciable mucosal thickening. PELVIS: Appendix: Normal caliber appendix. No findings to suggest acute appendicitis. Bladder: The urinary bladder is distended. Reproductive: There has been a hysterectomy. No adnexal cysts or masses are identified. ABDOMEN and PELVIS: Intraperitoneal space: Unremarkable. No free air. No significant fluid collection. Bones/joints: Multilevel spondylosis. No acute fracture. No dislocation. Soft tissues: Unremarkable. Vasculature: Moderate to severe atherosclerotic disease. No abdominal aortic aneurysm. Lymph nodes: Unremarkable. No enlarged lymph nodes. IMPRESSION: 1. Interval cholecystectomy. Trace fluid within the gallbladder fossa. 2. Nonspecific air-fluid levels present within the large bowel. This can be seen in the clinical setting of diarrhea. 3. Other findings as above. Electronically signed by: Tayler Wesley MD 12/29/2023 01:12 AM C. 12/27 22:13 Order name: CBC with Diff; Complete Time: 23:31 kb 12/27 22:13 Order name: CMP; Complete Time: 00:16 kb 12/27 22:13 Order name: Lipase; Complete Time: 00:16 kb 12/27 22:13 Order name: Urinalysis w/ reflexes; Complete Time: 03:06 kb 12/27 22:15 Order name: CT Abd/Pelvis - IV Contrast Only kb 12/27 22:13 Order name: IV Saline Lock; Complete Time: 22:16 kb 12/27 22:13 Order name: Labs collected and sent; Complete Time: 22:16 kb 12/27 22:39 Order name: Misc. Order: RECOLLECT ALL LABS; Complete Time: 23:11 rv1 Administered Medications: 12/27 22:23 Drug: Ondansetron IVP 4 mg IVP once; over 2 minutes Route: IVP; Site: right antecubital;ha1 22:50 Follow up: Response: No adverse reaction; Marked relief of symptoms; Nausea is decreasedha1 22:25 Drug: NS 0.9% IV 1000 ml IV at 1 bolus Per protocol; 1000 mL bolus Route: IV; Rate: 1 ha1 bolus; Site: right antecubital; 12/28 00:45 Follow up: Response: No adverse reaction; IV Status: Completed infusion; IV Intake: ha1 1000ml 12/27 22:25 Drug: Famotidine IVP 20 mg IVP once; dilute with 10 mL 0.9% NaCl; give over 2 minutes ha1 Route: IVP; Site: right antecubital; 22:50 Follow up: Response: No adverse reaction; Marked relief of symptoms; Nausea is decreasedha1 12/28 00:14 Drug: Ativan IVP 0.5 mg IVP once Route: IVP; Site: right antecubital; ha1 00:29 Follow up: Response: No adverse reaction; Anxiety decreased; RASS: Alert and Calm (0) ha1 03:25 Drug: Ondansetron PO 4 mg PO once Route: PO; ha1 03:41 Follow up: Response: No adverse reaction; Marked relief of symptoms ha1 03:25 Drug: Promethazine PO 25 mg PO once Route: PO; ha1 03:41 Follow up: Response: No adverse reaction; Marked relief of symptoms ha1 03:25 Drug: Diphenoxylate-Atropine PO 2 tabs PO once Route: PO; ha1 03:41 Follow up: Response: No adverse reaction; Marked relief of symptoms ha1 Disposition: 03:15 Co-signature as Attending Physician, Norberto Rodriguez MD I agree with the assessment sp4 and plan of care. I reviewed the patient's care provided by Advanced Practice Provider \T\ agree w/ the diagnosis \T\ care plan. I personally saw the pt \T\ performed a substantive portion of the visit, incldng all aspects of the (History/Exam/Medical Decision Making). Disposition Summary: 12/29/23 03:16 Discharge Ordered Problem: new sp4 Symptoms: have improved sp4 Condition: Stable sp4 Diagnosis - Functional diarrhea sp4 - Other specified noninfective gastroenteritis and colitis sp4 - Post operative diarrhea sp4 Followup: sp4 - With: Kedar Powers MD - When: 7 - 10 days - Reason: Recheck today's complaints Discharge Instructions: - Discharge Summary Sheet sp4 - Diarrhea, Adult sp4 Forms: - Patient Portal Instructions sp4 Prescriptions: - ondansetron 4 mg Oral Tablet,disintegrating - take 2 tablet ORAL route every 6 hours for 24 hours PRN nausea; 30 tablet; sp4 Refills: 0, Product Selection Permitted - Lomotil 2.5-0.025 mg Oral tablet - take 1 tablet ORAL route every 6 hours As needed PRN diarrhea; 60 tablet; sp4 Refills: 0, Product Selection Permitted Signatures: Dispatcher [employer] Nadeen Jerez, ZHANNA SANDOVAL-Celina Ng RN RN 3 Rain Saldana RN RN ha1 Catherine Newell rv1 Norberto Rodriguez MD MD sp4 Corrections: (The following items were deleted from the chart) 12/27 22: 22:13 CBC+H.LAB.BRZ ordered. EDMS EDMS 22: 22:13 COMPREHENSIVE METABOLIC PANEL+C.LAB.BRZ ordered. EDMS EDMS 22: 22:13 LIPASE+C.LAB.BRZ ordered. EDMS EDMS 22: 22:13 Urinalysis+U.LAB.BRZ ordered. EDMS EDMS 22:15 22:15 Abdomen Pelvis W Con+CT.RAD.BRZ ordered. EDMS EDMS
--- NOTE | 2023-12-29 03:16 | ER ---
Nurse's Notes [facility] Name: Patt Velásquez Age: 63 yrs Sex: Female : 1960 Arrival Date: 12/28/2023 Time: 21:49 Bed 20 Private MD: Diagnosis: Functional diarrhea;Other specified noninfective gastroenteritis and colitis;Post operative diarrhea Presentation: 12/27 22:12 Chief complaint: Patient states: sonja and umbilical hernia repair with Gio 5 wks lg3 ago. new onset vomiting today. denies pain. Coronavirus screen: Client denies travel out of the [place] in the last 14 days. At this time, the client does not indicate any symptoms associated with coronavirus-19. Ebola Screen: No symptoms or risks identified at this time. Initial Sepsis Screen: Does the patient meet any 2 criteria? No. Patient's initial sepsis screen is negative. Does the patient have a suspected source of infection? No. Patient's initial sepsis screen is negative. Risk Assessment: Do you want to hurt yourself or someone else? Patient reports no desire to harm self or others. Onset of symptoms was December 28, 2023. 22:12 Method Of Arrival: Ambulatory lg3 22:12 Acuity: NIDIA 3 lg3 Triage Assessment: 22:14 General: Appears in no apparent distress. uncomfortable, Behavior is calm, cooperative. lg3 Pain: Denies pain. EENT: No deficits noted. No signs and/or symptoms were reported regarding the EENT system. Neuro: No deficits noted. Pillai Agitation-Sedation Scale (RASS): 0 - Alert and Calm Level of Consciousness is awake, alert, obeys commands, Oriented to person, place, time, situation. Cardiovascular: No deficits noted. Denies chest pain, shortness of breath, Capillary refill < 3 seconds Clubbing of nail beds is absent JVD is absent Patient's skin is warm and dry. Respiratory: No deficits noted. Airway is patent Respiratory effort is even, unlabored, Respiratory pattern is regular, symmetrical. GI: Abdomen is round non-distended, Pt is actively vomiting bile, Abd is soft and non tender X 4 quads. Reports intolerance of fluids, intolerance of food, nausea, vomiting. : No deficits noted. No signs and/or symptoms were reported regarding the genitourinary system. Derm: No deficits noted. No signs and/or symptoms reported regarding the dermatologic system. Skin is intact, is healthy with good turgor, Skin is dry, Skin is normal, Skin temperature is warm. Musculoskeletal: No deficits noted. No signs and/or symptoms reported regarding the musculoskeletal system. Circulation, motion, and sensation intact. Range of motion: intact in all extremities. Historical: - Allergies: 22:14 No Known Allergies; lg3 - PMHx: 22:14 Hypercholesterolemia; Hypertensive disorder; lg3 - PSHx: 22:14 section; knee; Total abdominal hysterectomy; Cholecystectomy; umbilical lg3 hernia; parathyroid; - Immunization history:: Adult Immunizations up to date. - Infectious Disease History:: Denies. - Social history:: Smoking status: Patient denies any tobacco usage or history of. Patient/guardian denies using alcohol, street drugs. Screenin:20 [facility] ED Fall Risk Assessment (Adult) History of falling in the last 3 months, ha1 including since admission No falls in past 3 months (0 pts) Confusion or Disorientation No (0 pts) Intoxicated or Sedated No (0 pts) Impaired Gait No (0 pts) Mobility Assist Device Used No (0 pt) Altered Elimination No (0 pt) Score/Fall Risk Level 0 - 2 = Low Risk Oriented to surroundings, Maintained a safe environment, Educated pt \T\ family on fall prevention, incl call for assistance when getting out of bed, Hourly rounding (assess needs \T\ fall precautionary measures) done. Abuse screen: Denies threats or abuse. Denies injuries from another. Nutritional screening: No deficits noted. Tuberculosis screening: No symptoms or risk factors identified. Assessment: 22:00 General: Appears uncomfortable, Behavior is cooperative, anxious. Pain: Denies pain. ha1 Neuro: Level of Consciousness is awake, alert, obeys commands, Oriented to person, place, time, situation. Cardiovascular: Capillary refill < 3 seconds Patient's skin is warm and dry. Respiratory: Airway is patent Respiratory effort is even, unlabored, Respiratory pattern is regular, symmetrical. GI: Abdomen is round non-distended, Bowel sounds present X 4 quads. Abd is soft and non tender X 4 quads. Reports nausea, vomiting. : No signs and/or symptoms were reported regarding the genitourinary system. Derm: Skin is pink, warm \T\ dry. Musculoskeletal: Circulation, motion, and sensation intact. Range of motion:. 23:00 Reassessment: Patient and/or family updated on plan of care and expected duration. Pain ha1 level reassessed. Patient is alert, oriented x 3, equal unlabored respirations, skin warm/dry/pink. Patient denies pain at this time. Patient states feeling better. Patient states symptoms have improved. 12/28 00:03 Reassessment: Patient and/or family updated on plan of care and expected duration. Pain ha1 level reassessed. Patient is alert, oriented x 3, equal unlabored respirations, skin warm/dry/pink. Patient denies pain at this time. Patient states feeling better. Patient states symptoms have improved. 00:03 Reassessment: REPORTS ANXIETY TO CT , NOTIFIED CARE PROVIDER. ha1 00:30 Reassessment: Patient and/or family updated on plan of care and expected duration. Pain ha1 level reassessed. General: Appears comfortable, Behavior is calm, cooperative. 00:30 Reassessment: GOING TO CT. ha1 00:50 Reassessment: BACK FROM CT. ha1 01:30 Reassessment: Patient and/or family updated on plan of care and expected duration. Pain ha1 level reassessed. Patient is alert, oriented x 3, equal unlabored respirations, skin warm/dry/pink. Patient denies pain at this time. Patient states feeling better. Patient states symptoms have improved. 02:30 Reassessment: Patient and/or family updated on plan of care and expected duration. Pain ha1 level reassessed. Patient is alert, oriented x 3, equal unlabored respirations, skin warm/dry/pink. 03:42 Reassessment: Patient and/or family updated on plan of care and expected duration. Pain ha1 level reassessed. Patient is alert, oriented x 3, equal unlabored respirations, skin warm/dry/pink. Patient denies pain at this time. Patient states feeling better. Patient states symptoms have improved. Vital Signs: 12/27 22:12 BP 172 / 90; Pulse 113; Resp 17 S; Temp 98(O); Pulse Ox 97% on R/A; Weight 71.67 kg lg3 (R); Height 5 ft. 7 in. (R); Pain 0/10; 22:40 BP 156 / 80; Pulse 96; Resp 17 S; Pulse Ox 100% on R/A; ha1 23:15 BP 158 / 78; Pulse 82; Resp 17 S; Pulse Ox 98% on R/A; ha1 12/28 00:03 BP 163 / 72; Pulse 92; Resp 17 S; Pulse Ox 99% on R/A; ha1 01:00 BP 156 / 86; Pulse 98; Resp 17 S; Pulse Ox 99% on R/A; ha1 02:00 BP 139 / 63; Pulse 98; Resp 17 S; Pulse Ox 99% on R/A; ha1 03:15 BP 160 / 84; Pulse 93; Resp 17 S; Temp 97.6(T); Pulse Ox 99% on R/A; ha1 12/27 22:12 Body Mass Index 24.75 (71.67 kg, 170.18 cm) lg3 12/27 22:12 Pain Scale: Adult lg3 ED Course: 12/27 21:51 Patient arrived in ED. jj6 21:52 Nade[facility] Gee [facility]C [facility] kb 21:52 Norberto Rodriguez MD is Attending Physician. kb 21:57 Patient has correct armband on for positive identification. Placed in gown. Bed in low ha1 position. Call light in reach. Side rails up X 1. Adult w/ patient. 22:12 Rain Saldana, RN is Primary Nurse. ha1 22:12 Inserted saline lock: 20 gauge in right antecubital area, using aseptic technique. ha1 Blood collected. Flushed with 10 mL NS. 22:14 Triage completed. lg3 22:14 Arm band placed on right wrist. lg3 22:15 Provided Education on: PLAN OF CARE . ha1 22:15 Client placed on continuous cardiac and pulse oximetry monitoring. NIBP monitoring ha1 applied. 22:26 CBC with Diff Sent. ha1 22:26 CMP Sent. ha1 22:26 Lipase Sent. ha1 23:11 CBC with Diff Sent. ha1 23:11 CMP Sent. ha1 23:11 Lipase Sent. ha1 12/28 00:34 CT Abd/Pelvis - IV Contrast Only In Process Unspecified. EDMS 03:15 Kedar Powers MD is Referral Physician. sp4 Administered Medications: 12/27 22:23 Drug: Ondansetron IVP 4 mg IVP once; over 2 minutes Route: IVP; Site: right antecubital;ha1 22:50 Follow up: Response: No adverse reaction; Marked relief of symptoms; Nausea is decreasedha1 22:25 Drug: NS 0.9% IV 1000 ml IV at 1 bolus Per protocol; 1000 mL bolus Route: IV; Rate: 1 ha1 bolus; Site: right antecubital; 12/28 00:45 Follow up: Response: No adverse reaction; IV Status: Completed infusion; IV Intake: ha1 1000ml 12/27 22:25 Drug: Famotidine IVP 20 mg IVP once; dilute with 10 mL 0.9% NaCl; give over 2 minutes ha1 Route: IVP; Site: right antecubital; 22:50 Follow up: Response: No adverse reaction; Marked relief of symptoms; Nausea is decreasedha1 12/28 00:14 Drug: Ativan IVP 0.5 mg IVP once Route: IVP; Site: right antecubital; ha1 00:29 Follow up: Response: No adverse reaction; Anxiety decreased; RASS: Alert and Calm (0) ha1 03:25 Drug: Ondansetron PO 4 mg PO once Route: PO; ha1 03:41 Follow up: Response: No adverse reaction; Marked relief of symptoms ha1 03:25 Drug: Promethazine PO 25 mg PO once Route: PO; ha1 03:41 Follow up: Response: No adverse reaction; Marked relief of symptoms ha1 03:25 Drug: Diphenoxylate-Atropine PO 2 tabs PO once Route: PO; ha1 03:41 Follow up: Response: No adverse reaction; Marked relief of symptoms ha1 Medication: 00:28 VIS not applicable for this client. ha1 Intake: 00:45 IV: 1000ml; Total: 1000ml. ha1 Outcome: 03:16 Discharge ordered by . sp4 03:44 Patient left the ED. ha1 Signatures: Dispatcher [employer] EDMS Nadeen Gee FNP-C FNP-Celina Ng RN RN lg3 Rosa Rick6 Rain Saldana RN RN ha1 Norberto Rodriguez MD MD sp4 Corrections: (The following items were deleted from the chart) 01:49 12/27 00:25 Reassessment: GOING TO CT ha1 ha1 12/28 01:49 12/27 00:25 Reassessment: GOING TO CT ha1 ha1
[2023-12-29] MEDS ORDERED: PROMETHAZINE 25 MG TABLET ONE (03:24)
[2023-12-29] MEDS ORDERED: ONDANSETRON 4 MG (ODT) TAB ONE (03:24)
[2023-12-29] MEDS ORDERED: DIPHENOX/ATROP SULF 1 TAB PO ONE (03:25)
[2023-12-29 04:11] VITALS: O2SAT 99
[2023-12-29 04:15] VITALS: BP 160/84; TEMP 97.6
--- NOTE | 2023-12-29 08:37 | RAD REPORT ---
EXAM: CT Abdomen and Pelvis With Intravenous Contrast CLINICAL HISTORY: Abd pain. TECHNIQUE: Axial computed tomography images of the abdomen and pelvis with intravenous contrast. Sagittal and co margoth reformatted images were created and reviewed. This CT exam was performed using one or more of the following dose reducti on techniques: automated exposure control, adjustment of the mA and/or kV according to patient size, and/or use of iterative r econstruction technique. COMPARISON: CT Chest abdomen pelvis 11/17/2023. FINDINGS: Lung bases: Stable 3 mm right and 2 mm left lower lobe nodules. No consolidation. Mediastinum: Small hiatal hernia. ABDOMEN: Liver: Unremarkable. No mass. Gallbladder and bile ducts: Interval cholecystectomy. Trace fluid within the gallbladder fossa. No du ctal dilation. Pancreas: Mild pancreatic parenchymal atrophy. No ductal dilation. Spleen: Unremarkable. No splenomegaly. Adrenals: Unremarkable. No mass. Kidneys and ureters: Unremarkable. No solid mass. No hydronephrosis. Stomach and bowel: Air-fluid levels within the proximal to mid large bowel. No obstruction. No apprec iable mucosal thickening. PELVIS: Appendix: Normal caliber appendix. No findings to suggest acute appendicitis. Bladder: The urinary bladder is distended. Reproductive: There has been a hysterectomy. No adnexal cysts or masses are identified. ABDOMEN and PELVIS: Intraperitoneal space: Unremarkable. No free air. No significant fluid collection. Bones/joints: Multilevel spondylosis. No acute fracture. No dislocation. Soft tissues: Unremarkable. Vasculature: Moderate to severe atherosclerotic disease. No abdominal aortic aneurysm. Lymph nodes: Unremarkable. No enlarged lymph nodes. IMPRESSION: 1. Interval cholecystectomy. Trace fluid within the gallbladder fossa. 2. Nonspecific air-fluid levels present within the large bowel. This can be seen in the clinical sett ing of diarrhea. 3. Other findings as above. Electronically signed by: Tayler Wesley MD 12/29/2023 01:12 AM [facility] Due to temporary technical issues with the PACS/RE2 reporting system, reports are being tanika d by the in-house radiologist without review as a courtesy to ensure prompt reporting the interpreting radiologist is fully responsible for the content of the report. Transcribed Date/Time: 12/29/2023 8:37 AM
== END 2023-12-29 03:44 | disposition home or self-care (01) ==
LOC: ER 21:49
DX: K91.89 Other postprocedural complications and disorders of digestive system (principal); K59.1 Functional diarrhea; K52.89 Other specified noninfective gastroenteritis and colitis; I10 Essential (primary) hypertension; E78.00 Pure hypercholesterolemia, unspecified
CPT/HCPCS: 96361; 85025; 36415; 81003; 83690; 80053; 74177; 96375; 96374; 99284; Q9967; Q0169; Q0162; J2405; J7030